=== PATIENT | male | born 1960 | race Caucasian/White ===

== ENCOUNTER 2020-09-30 07:53 | Outpatient (CLI) | payer MEDICARE, SELFPAY ==
--- NOTE | 2020-10-12 15:41 | WPDHOMESLEEP ---
Sleep Study - Home Unattended Date of Study: 09/30/20 Ordering Provider: Laura Burns MD Interpreting Physician: Lily Coley MD Home Sleep Study Type: Apnea Link Air Height: 1.78 m Weight: 79.379 kg Body Mass Index: 25.1 [place]: 17 Reason for Sleep Study Loud constant snoring, hypersomnia Sleep History Ulisses Machuca is a 60 yo man who has been able to get by his entire life on 4 hours of sleep at night. He constantly snores and it is constantly loud enough that others complain about it. He constantly awakens at night with heartburn, belching or coughing. He constantly awakens at night feeling short of breath. He occasionally has trouble sleeping if he has a cold. He constantly wakes up gasping for breath at night and has breathing problems at night observed by others. He rarely sweats excessively at night but he does frequently notice heart pounding or beating irregularly at night. He constantly falls asleep during the day, occasionally involuntarily but never while driving. He does not fall asleep during physical effort. He does not have loss of muscle tone with strong emotion. He does not have daytime difficulties due to excessive sleepiness, currently is retired / disabled. He occasionally feels paralyzed on waking or falling asleep and occasionally has vivid dreamlike scenes upon awakening or falling asleep. He constantly feels afraid to go to sleep. he occasionally has nightmares. He frequently remembers his dreams. He constantly has racing thoughts, occasionally feel sad or depressed. He constantly has anxiety. He occasionally has muscular tension, occasionally notices parts of his body jerking. He does not kick at night. He occasionally has crawling and aching feelings in his legs, occasionally has leg pain at night and occasionally has morning jaw pain. He constantly has bothered by pain during the day. He occasionally has awakened by pain at night. He constantly wakes up feeling stiff in the morning frequently with sore achy muscles infrequent with pain in the neck and spine. He has fatigue, sexual problems, memory problems, insomnia and a history of polycythemia. LAbs from [employer] on 10/09/2019 shows elevated hemoglobin and hematocrit 19.2/52.2 with rbc count elevated at 6.1. Normal bedtime is 2:00 a.m. falling asleep within minutes waking typically 3 times at night staying awake for a minute or 2. While awake he will go to the bathroom. He wakes in the morning at 6:00 a.m.. We can schedule is the same. He estimates 4 hours of sleep at night. He does take naps. Short naps are refreshing. He feels better in the morning compared other times of day Habits: previously smoked tobacco. He drinks a gal of caffeinated beverages a day. No alcohol or recreational drugs. [facility] Past Medical History Medical History (Updated 10/12/20 @ 16:14 by Lily Coley MD) COPD (chronic obstructive pulmonary disease) with chronic bronchitis Elevated PSA Fracture, clavicle Left leg paresthesias Low vitamin D level Polycythemia Polycythemia due to fall in plasma volume Surgical History Surgical History H/O thumb surgery Family History Family History Mother Cerebrovascular accident Sibling Asthma Other Diabetes mellitus Family history of arthritis Family history of malignant neoplasm Social History Social History Smoking status: Current every day smoker Second hand tobacco smoke exposure: No Alcohol intake: former Substance use type: does not use Medications Home Medications Medication Instructions Recorded Confirmed Type albuterol sulfate 90 mcg/actuation 1 puff INHALATION Q4-6H PRN gm 10/07/19 09/10/20 History aerosol inhaler roflumilast 500 mcg tablet 500 mcg PO DAILY 90 Days #90 tablet 02/03/20 09/10/20 Rx bupropion
[2020-10-12 16:14] VITALS: BMI 25.1
== END 2020-09-30 07:54 | disposition home or self-care (01) ==
LOC: ANHCSM 07:54
PROVIDERS: PCP Family Medicine; Visit Provider Internal Medicine Critical Care Medicine
DX: G47.30 Sleep apnea, unspecified (principal); G47.33 Obstructive sleep apnea (adult) (pediatric)
CPT/HCPCS: 95806

== ENCOUNTER 2020-12-01 00:18 | Outpatient (CLI) | payer MEDICARE, SELFPAY ==
[2020-12-01 17:42] LABS: SARS-CoV-2 RNA PCR Negative
== END 2020-12-01 00:19 | disposition home or self-care (01) ==
LOC: ANHCOVIDDT 00:18
PROVIDERS: PCP Family Medicine; Visit Provider Internal Medicine Critical Care Medicine
DX: R68.89 Other general symptoms and signs (principal); Z20.822 Contact with and (suspected) exposure to COVID-19
CPT/HCPCS: C9803; U0003

== ENCOUNTER 2020-12-03 09:32 | Outpatient (CLI) | payer MEDICARE, SELFPAY ==
--- NOTE | 2021-01-08 11:46 | WPDSLEEPSTUD ---
Sleep Study Date of Study: 12/03/20 Ordering Provider: Dr.Barbara Coley Interpreting Physician: Sleep Study Type: CPAP Titration Height: 1.78 m Weight: 79.379 kg Body Mass Index: 25.1 Neck Circumference: 45.72 cm [place]: 17 Reason for Sleep Study Prior home sleep study documented presence of at least moderate obstructive sleep apnea along with episodes of significant desaturation. Sleep History Loud disruptive snoring, daytime hypersomnolence. [place] score of 17 out of 24 is consistent with moderate to severe hypersomnolence. [facility] Past Medical History Medical History (Updated 10/12/20 @ 16:14 by Lily Coley MD) COPD (chronic obstructive pulmonary disease) with chronic bronchitis Elevated PSA Fracture, clavicle Left leg paresthesias Low vitamin D level Polycythemia Polycythemia due to fall in plasma volume Surgical History Surgical History H/O thumb surgery Family History Family History Mother Cerebrovascular accident Sibling Asthma Other Diabetes mellitus Family history of arthritis Family history of malignant neoplasm Social History Social History Smoking status: Current every day smoker Second hand tobacco smoke exposure: No Alcohol intake: former Substance use type: does not use Medications Home Medications Medication Instructions Recorded Confirmed Type albuterol sulfate 90 mcg/actuation 1 puff INHALATION Q4-6H PRN gm 10/07/19 09/10/20 History aerosol inhaler roflumilast 500 mcg tablet 500 mcg PO DAILY 90 Days #90 tablet 02/03/20 09/10/20 Rx bupropion HCl 150 mg tablet,12 hr 150 mg PO DAILY 30 Days #60 tablet 04/16/20 09/10/20 Rx sustained-release prednisone 5 mg tablet 5 mg PO DAILY 30 Days #30 tablet 06/04/20 09/10/20 Rx fluticasone propionate 50 2 spray NASAL DAILY PRN #47.4 ml 07/19/20 09/10/20 Rx mcg/actuation nasal spray,suspension azithromycin 250 mg tablet See Rx Instructions PO .COMPLEX #6 08/30/20 09/10/20 Rx tablet budesonide-formoterol HFA 160 2 puff INHALATION Q12H #10.2 gm 08/30/20 09/10/20 Rx mcg-4.5 mcg/actuation aerosol inhaler prednisone 5 mg tablet 15 mg PO DAILY PRN #90 tablet 09/10/20 09/10/20 Rx eszopiclone 3 mg tablet 3 mg PO ONCE #1 tablet 11/01/20 Rx cholecalciferol (vitamin D3) 1,250 1,250 mcg PO WEEKLY #10 cap 11/11/20 Rx mcg (50,000 unit) capsule ipratropium 0.5 mg-albuterol 3 mg 3 ml INHALATION QID PRN 90 Days 12/03/20 Rx (2.5 mg base)/3 mL nebulization #1080 ml soln Sleep Procedure Polysomnographic study entirely devoted to positive airway pressure titration. Patient used air fit F 30 fullface mask of medium size [employer] Sleep [employer] AASM criteria used. total recording time 375 minutes, total sleep time 327 minutes, sleep efficiency 87.1%. Sleep latency 4 minutes, REM latency 32.5 minutes. Awake after sleep onset 44 minutes, stage N1 7.6%, N2 70.9%, N3 0%, stage R 21.4%. supine sleep 94.2%, supine REM sleep 16.8%. Respiratory Analysis during CPAP titration there were 2 apneas, 1 obstructive and 1 central. Apnea index 0.4 for 30 hypopneas, hypopnea index 5.5. AHI 5.9. Supine index 6.2, nonsupine index 0. REM index 15.4, non-REM index 3.5.RERA 1.RDI-6.1. Arousals Total arousals 46, index 7.4. . spontaneous arousals 45, apnea arousal 1. Periodic Limb Movements no leg movements noted. Oximetry Data Toni oxygen saturation 89%. Lowest SaO2 73%.. SaO2<90%-229Min,SaO2<88%-37.5Min. Snoring Profile Intermittent snoring noted. Cardiac Profile normal sinus rhythm. Average heart rate 86 beats per minute. Range 48 to 121 beats per minute. EEG Profile Unremarkable EEG. Assessment and Plan Additional Plan Diagnosis-#1-GIOVANNA G47.33 CPAP titration data - patient used air fit F 30 fullfac
[2021-01-08 12:05] VITALS: BMI 25.1
== END 2020-12-03 09:33 | disposition home or self-care (01) ==
LOC: ANHCSM 09:34
PROVIDERS: PCP Family Medicine; Visit Provider Internal Medicine Critical Care Medicine
DX: G47.33 Obstructive sleep apnea (adult) (pediatric) (principal)
CPT/HCPCS: 95811

== ENCOUNTER 2021-04-01 12:22 | Outpatient (CLI) | payer MEDICARE, SELFPAY ==
[2021-04-01 13:00] VITALS: PULSE 100; O2SAT 92
[2021-04-01 13:03] VITALS: PULSE 119; O2SAT 87
[2021-04-01 13:05] VITALS: PULSE 119; O2SAT 87
[2021-04-01 13:06] VITALS: O2SAT 93
[2021-04-01 13:15] VITALS: PULSE 92; O2SAT 93
--- NOTE | 2021-04-01 15:21 | HOMEO2EVAL ---
Evaluation was performed at [facility] Home Oxygen Evaluation RC: Home Oxygen (O2) Evaluation Start: 04/01/21 15:16 Freq: Status: Active Protocol: RPE Activity Type Activity Date Activity User E-Sign Co-Sign Detail Recorded Client Recorded Date Recorded By Document 04/01/21 13:00 KRISTIN [email or web address] 04/01/21 15:21 KRISTIN Document 04/01/21 13:03 KRISTIN [id number] 04/01/21 15:21 KRISTIN Document 04/01/21 13:05 KRISTIN [email or web address] 04/01/21 15:21 KRISTIN Document 04/01/21 13:06 KRISTIN [email or web address] 04/01/21 15:21 KRISTIN Document 04/01/21 13:15 KRISTIN [id number] 04/01/21 15:21 KRISTIN 04/01/21 04/01/21 04/01/21 13:00 13:03 13:05 Home O2 Evaluation Test Phase Resting Exercise Exercise Oxygen Delivery Room Air Room Air Nasal Cannula Oxygen Flow Rate (L/min) 1 Pulse Oximetry (90-100 %) 92 87 L 87 L Pulse Rate (60-100 beats/min) 100 119 H 119 H Activity Tolerance Rating of Perceived Dyspnea (PD) Rate of Perceived Exertion (PE) Ambulation Distance (feet) Home Oxygen Evaluation Comments Treatment Charges O2 Evaluation - Outpatient 04/01/21 04/01/21 13:06 13:15 Home O2 Evaluation Test Phase Exercise Resting Oxygen Delivery Nasal Cannula Room Air Oxygen Flow Rate (L/min) 2 Pulse Oximetry (90-100 %) 93 93 Pulse Rate (60-100 beats/min) 92 Activity Tolerance Poor Rating of Perceived Dyspnea (PD) +3 Moderate Difficulty, But Can Continue Rate of Perceived Exertion (PE) 13 Somewhat Hard Ambulation Distance (feet) 100 Home Oxygen Evaluation Comments Pt requires 2 L with exertion Treatment Charges
--- NOTE | 2021-04-01 15:22 | PCRCNOTE ---
home o2 eval entered, needs for re-cert for home o2. 2 l with exertion
== END 2021-04-01 12:23 | disposition home or self-care (01) ==
PROVIDERS: PCP Family Medicine; Visit Provider Internal Medicine Critical Care Medicine
DX: R06.02 Shortness of breath (principal)
CPT/HCPCS: 94618

== ENCOUNTER 2021-07-05 12:56 | Outpatient (CLI) | payer MEDICARE, MEDICAID, SELFPAY ==
[2021-07-05 13:33] LABS: Alveolar/Arterial O2 Gradient 40.1 mmHg; Base Excess ABG 1.5 mEq/l (+/-2.0); Carboxyhemoglobin 0.7 % THb (0-2.0); Fractional Inspired Oxygen 21 %; HCO3 ABG 25.8 mEq/l (22.0-26.0); Methemoglobin ABG 0.3 %THb (0-1.5); Oxygen Content ABG 21.6 %vol (16.0-22.0); Oxygen Saturation ABG 92.4 % (95.0-100.0); Oxyhemoglobin 92.2 % THb (90.0-100.0); PCO2 ABG 39.9 mmHg (35.0-45.0); PO2 ABG 61.9 mmHg (80.0-100.0); PO2 FiO2 Ratio Arterial Blood 2.95 %; Reduced Hemoglobin 6.8 %THb (0-5.0); Total Hemoglobin 16.7 g/dL (12.0-18.0); pH ABG 7.429 (7.350-7.450)
[2021-07-05 13:34] LABS: Device ROOM AIR; Modified Allen's Test Pass; Site Drawn RIGHT RADIAL
== END 2021-07-05 12:57 | disposition home or self-care (01) ==
PROVIDERS: PCP Family Medicine; Visit Provider Nurse Practitioner Family
DX: J44.9 Chronic obstructive pulmonary disease, unspecified (principal)
CPT/HCPCS: 36600; 82375; 82805; 83050

== ENCOUNTER 2022-09-15 13:13 | Outpatient (CLI) | payer OTHER, SELFPAY ==
[2022-09-15 19:36] LABS: Cholesterol 130 mg/dL (0-200); HDL Direct 45 mg/dL; Triglycerides 123 mg/dL (<150)
[2022-09-15 19:47] LABS: LDL Cholesterol Direct 38 mg/dL
== END 2022-09-15 13:14 | disposition home or self-care (01) ==
PROVIDERS: PCP Family Medicine; Visit Provider Family Medicine
DX: Z51.81 Encounter for therapeutic drug level monitoring (principal); Z79.899 Other long term (current) drug therapy; Z12.5 Encounter for screening for malignant neoplasm of prostate
CPT/HCPCS: 36415; 80061; 84153; G0103

== ENCOUNTER 2022-11-10 08:08 | Outpatient (CLI) | payer OTHER, SELFPAY ==
--- NOTE | 2022-11-10 16:31 | WPDSIXMINUTE ---
Six Minute Walk Procedure Procedure Performed Pulmonary Stress Test (6 min walk) Six Minute Walk Six Minute Walk: This is a 6 minute walk test. The test was performed and interpreted in accordance with the 2014 ERS/ATS task force guidelines. Of note the patient is prescribed home oxygen at 2 L nasal cannula at rest and 4 L with exertion. The patient used 4 L for the current test and used a wheeled walker. The patient stopped at 2 minutes and 30 seconds due to severe shortness of breath. Findings: The patient's resting oxygen saturation on 2 L NC measured by pulse oximetry was 96% and heart rate was 62 bpm. Patient ambulated on 4 L NC for 2 minutes and 30 seconds and ambulated 305 meters and oxygen saturation remained 96 to 98%. Heart rate at the end of the study was 129 bpm. There are no prior studies for comparison.
== END 2022-11-10 08:09 | disposition home or self-care (01) ==
LOC: ANHPFT 08:08
PROVIDERS: PCP Family Medicine; Visit Provider Internal Medicine Critical Care Medicine
DX: J44.9 Chronic obstructive pulmonary disease, unspecified (principal)
CPT/HCPCS: 94618

== ENCOUNTER 2023-02-14 19:45 | Emergency (ER) | payer MEDICARE, MEDICAID, SELFPAY ==
[2023-02-14] VITALS (19 sets, daily range): BP systolic 106–129; BP diastolic 67–113; PULSE 94–116; RESP 8–24; TEMP 37.1; O2SAT 93–98
--- NOTE | ~2023-02-14 | XR_ITS ---
EXAMINATION: XR chest 2V Exam Date/Time: 02/14/2023 20:00 CDT HISTORY: chest pain, EMPHYSEMA, BRONCHITIS, COPD Comparison: 07/16/2015. RESULT: Lines, tubes, and devices: None. Lungs and pleura: Progressive emphysematous change with architectural distortion in the upper lobes. Bilateral lower lobe reticulonodular opacities. Stable left lower lobe granuloma. Cardiomediastinal silhouette: Stable. Other: No acute osseous or upper abdominal finding. IMPRESSION: Pulmonary opacities may represent bronchiolitis, as can be seen with atypical infection, asthma, aspi ration, and small airways disease. Severe emphysematous change. Reviewed, dictated and finalized at location [facility]. IMPRESSION: Pulmonary opacities may represent bronchiolitis, as can be seen with atypical i nfection, asthma, aspiration, and small airways disease. Severe emphysematous c hange.
--- NOTE | 2023-02-14 19:47 | ECG_ITS ---
Measurements Intervals [place] Rate: 110 P: 87 ID: [id number] QRS: 84 QRSD: 97 T: 75 QT: 310 QTc: 421 Interpretive Statements SINUS TACHYCARDIA BASELINE ARTIFACT- I, AVR, AVL ABNORMAL ECG NO PREVIOUS ECG AVAILABLE FOR COMPARISON Electronically Signed On 02-14-2023 21:00:06 CDT by Chad Cardoza D.O.
[2023-02-14 20:52] LABS: Basophils Absolute Auto 0.1 K/mm3 (0.0-0.1); Basophils Percent Auto 1.2 % (0.2-1.2); Eosinophils Absolute Auto 0.1 K/mm3 (0-0.3); Eosinophils Percent Auto 2.4 % (0-4.4); Hematocrit 49.5 % (42.0-52.0); Hemoglobin 16.7 g/dL (14.0-18.0); Immature Granulocyte Absolute 0.01 K/mm3 (0.00-0.031); Immature Granulocyte Percent A 0.2 % (0-0.5); Lymphocytes Absolute Auto 1.41 K/mm3 (0.9-3.2); Lymphocytes Percent Auto 23.8 % (18.3-44.2); Mean Corpuscular HGB Conc 33.7 g/dl (32-36); Mean Corpuscular Hemoglobin 29.7 pg (26-34); Mean Corpuscular Volume 87.9 fl (80-100); Mean Platelet Volume 10.6 fl (7.4-10.4); Monocytes Absolute Auto 0.6 K/mm3 (0.1-0.6); Monocytes Percent Auto 10.1 % (2.6-8.5); Neutrophils Absolute Auto 3.7 K/mm3 (1.3-6.7); Neutrophils Percent Auto 62.3 % (45.5-73.1); Platelet Count Result 235 k/mm3 (150-375); Red Blood Count 5.63 M/mm3 (4.6-6.20); Red Cell Distribution Width 13.4 % (11.5-14.5); White Blood Count 5.9 K/mm3 (4.5-10.0)
[2023-02-14 21:02] LABS: Alanine Aminotransferase 21 U/L (6-50); Albumin Level 4.3 g/dL (3.5-5.1); Alkaline Phosphatase 89 U/L (38-126); Anion Gap 9 mmol/L (8-16); Aspartate Amino Transferase 20 U/L (17-59); Bilirubin,Total 0.7 mg/dL (0.2-1.3); Blood Urea Nitrogen 18 mg/dL (9-20); Carbon Dioxide 26 mmol/L (22-30); Chloride 105 mmol/L (98-107); Estimated CRCL calculation 70 ml/min; Estimated Glomerular Filt Rate > 60; Glucose 103 mg/dL (65-110); INR 1.1; Lipase 53 U/L (23-300); Prothrombin Time 13.6 Seconds (11.1-14.7); Sodium 140 mmol/L (137-145)
[2023-02-14 21:03] LABS: Partial Thromboplastin Time 28.8 SECONDS (22.3-36.8)
[2023-02-14 21:39] LABS: Troponin I < 0.012 ng/mL (0.000-0.034)
--- NOTE | 2023-02-14 21:43 | PC.NURSE ---
Patient states he has chest pain when he takes a deep breath. Patient denies chest pain at other times. Patient wear 2-4L of O2 at home baseline. Patient is 2L at rest and 4L with exertion.
--- NOTE | 2023-02-14 22:13 | ED.CHESTPAIN ---
HPI - Chest Pain General Chief Complaint: Chest Pain Stated Complaint: chest pain x several hours Time Seen by Provider: 02/14/23 21:45 History of Present Illness HPI narrative: This is a 63-year-old male with past medical history of COPD on 2 L of O2 at home, who presents to the emergency department complaining of sharp left-sided chest pain with deep breathing. He states the pain began today while at rest. The pain is rated 5/10 and is aggravated only by deep breathing with improvement on exhalation. He denies radiation of his pain, lightheadedness, nausea or vomiting. Related Data Home Medications Medication Instructions Recorded Confirmed albuterol sulfate 90 mcg/actuation 1 puff inhalation Q4-6H PRN 10/07/19 01/04/22 aerosol inhaler (Ventolin HFA) ipratropium 0.5 mg-albuterol 3 mg 3 ml inhalation QID PRN 01/04/22 01/04/22 (2.5 mg base)/3 mL nebulization soln Allergies Allergy/AdvReac Type Severity Reaction Status Date / Time Fish Containing Products AdvReac Anaphylaxis Verified 02/14/23 20:27 shellfish derived AdvReac Anaphylaxis Verified 02/14/23 20:27 Review of Systems Review of Systems: CONSTITUTIONAL: Denies fever, chills, or sweats. CARDIOVASCULAR: Denies chest pain, palpitations, or edema. RESPIRATORY: Chronic cough productive of clear mucus without blood denies new or worsening dyspnea. GASTROINTESTINAL: Denies abdominal pain, nausea, vomiting, or diarrhea. GENITOURINARY: Denies dysuria or hematuria. SKIN: Denies rash or itching. MUSCULOSKELETAL: Denies back pain, joint pain, or myalgia. NEUROLOGIC: Denies headache, numbness, dizziness, or weakness. PSYCHIATRIC: Denies anxiety or depression. [facility] Past Medical History Medical History COPD (chronic obstructive pulmonary disease) with chronic bronchitis Elevated PSA Emphysema lung Fracture, clavicle Left leg paresthesias Low vitamin D level GIOVANNA on CPAP Polycythemia Polycythemia due to fall in plasma volume Surgical History Surgical History H/O thumb surgery Family History Family History Mother , age 77 Heart disease Cancer Cerebrovascular accident Sibling Diabetes mellitus Asthma Father Heart disease Other Family history of arthritis Family history of malignant neoplasm Social History Social History Smoking packs per day: 0.5 Smoking cigarettes per day: 10.0 Years smoked: 40 Smoking pack-years: 20.00 Smoking status: Current every day smoker Tobacco type: cigarettes Second hand tobacco smoke exposure: Yes Alcohol intake: former Substance use type: does not use Lack of Transportation: No Lack of Food: Often True Current Housing: I Have Housing Concerned About Future Housing: No Difficulty Paying Gas/Electric Bills: No Difficulty Paying for Meds: No Currently Unemployed: Decline to Answer Education: High School Diploma/GED Difficulty w/ Childcare or Family Care: No Living arrangements: with family Occupation/Education: unemployed Additional occupation/education comments: disabled Exam Narrative: GENERAL: Well-developed, well-nourished, appears uncomfortable HEAD: Normocephalic, atraumatic. EYES: PERRLA and EOMI. ENT: Nares clear, no rhinorrhea or epistaxis. Mucous membranes moist. Oropharynx without tonsillar hypertrophy exudate or other lesions. CHEST: Clear to auscultation. No respiratory distress. No wheezes rales or rhonchi. Tender to palpation over the left chest in the anterior wall and in the mid axillary line with pain similar to the patient's complaints HEART: Regular rate and rhythm. No murmur heard. Normal peripheral pulses. ABDOMEN: Soft, nontender, nondistended, normal active bowel sounds. EXTREMITIES: Normal range of motio
[2023-02-14] MEDS: ACETAMINOPHEN 500 MG TABLET 1000 MG PO (22:33)
[2023-02-14] MEDS: DOXYCYCLINE HYCLATE 100 MG TABLET PO (22:34)
[2023-02-14 23:33] LABS: Troponin I < 0.012 ng/mL (0.000-0.034)
[2023-02-15] VITALS: PULSE 102; RESP 20; O2SAT 97
[2023-02-15 00:01] VITALS: BP 117/86; PULSE 102; RESP 22; O2SAT 96
== END 2023-02-15 00:23 | disposition home or self-care (01) ==
PROVIDERS: Emergency Medicine; Emergency Provider Preventive Medicine Aerospace Medicine; PCP Family Medicine
DX: J42 Unspecified chronic bronchitis (principal); R07.89 Other chest pain
CPT/HCPCS: 36415; 71046; 80053; 83690; 84484; 85025; 85610; 85730; 93005; 99284; A9270

== ENCOUNTER 2023-03-30 13:30 | Outpatient (RCR) | payer MEDICARE, MEDICAID, SELFPAY | END 2023-03-30 23:59 | disposition home or self-care (01) | LOC: ANHCPREHAB 13:30 | PROVIDERS: PCP Family Medicine; Visit Provider Internal Medicine Critical Care Medicine | DX: J44.9 Chronic obstructive pulmonary disease, unspecified (principal) | CPT/HCPCS: 94625 ==

== ENCOUNTER 2023-05-01 13:30 | Outpatient (RCR) | payer MEDICARE, MEDICAID, SELFPAY | END 2023-05-01 15:58 | disposition home or self-care (01) | LOC: ANHCPREHAB 13:30 | PROVIDERS: PCP Family Medicine; Visit Provider Internal Medicine Critical Care Medicine | DX: J44.9 Chronic obstructive pulmonary disease, unspecified (principal) | CPT/HCPCS: 94625 ==

== ENCOUNTER 2023-05-09 16:25 | Outpatient (CLI) | payer MEDICARE, MEDICAID, SELFPAY ==
--- NOTE | 2023-05-10 10:08 | PCRCNOTE ---
Paper documentation exists on this patient due to [employer] downtime on 05/09/23 from [id number] to [id number]
--- NOTE | 2023-05-10 12:49 | WPDSIXMINUTE ---
Six Minute Walk Procedure Procedure Performed Pulmonary Stress Test (6 min walk) Six Minute Walk Six Minute Walk: This 6 minute walk test was carried out with the patient breathing supplemental oxygen at 4 liters/minute. The pre-walk baseline oxyhemoglobin saturation was 92%. The patient walked over 243 m with no stops during testing. During the walk the oxyhemoglobin saturation decreased down to 80%. Impression: Significant oxyhemoglobin desaturation on this testing.
== END 2023-05-09 16:26 | disposition home or self-care (01) ==
LOC: ANHPFT 16:26
PROVIDERS: PCP Family Medicine; Visit Provider Internal Medicine Critical Care Medicine
DX: J44.9 Chronic obstructive pulmonary disease, unspecified (principal); J96.10 Chronic respiratory failure, unspecified whether with hypoxia or hypercapnia
CPT/HCPCS: 94618

== ENCOUNTER 2024-01-10 16:24 | Outpatient (CLI) | payer MEDICARE, MEDICAID, SELFPAY ==
[2024-01-10 19:11] LABS: Hematocrit 49.4 % (42.0-52.0); Hemoglobin 15.9 g/dL (14.0-18.0); Mean Corpuscular HGB Conc 32.2 g/dl (32-36); Mean Corpuscular Hemoglobin 28.9 pg (26-34); Mean Corpuscular Volume 89.8 fl (80-100); Mean Platelet Volume 11.4 fl (7.4-10.4); Platelet Count Result 229 k/mm3 (150-375); Red Cell Distribution Width 13.3 % (11.5-14.5); White Blood Count 5.9 K/mm3 (4.5-10.0)
[2024-01-10 19:19] LABS: Alanine Aminotransferase 19 U/L (6-50); Albumin Level 3.6 g/dL (3.5-5.1); Alkaline Phosphatase 89 U/L (38-126); Anion Gap 4 mmol/L (8-16); Aspartate Amino Transferase 32 U/L (17-59); Bilirubin,Total 0.5 mg/dL (0.2-1.3); Blood Urea Nitrogen 17 mg/dL (9-20); Calcium 8.9 mg/dL (8.4-10.2); Carbon Dioxide 28 mmol/L (22-30); Chloride 107 mmol/L (98-107); Cholesterol 116 mg/dL (0-200); Estimated Glomerular Filt Rate > 60; Glucose 98 mg/dL (65-110); HDL Direct 56 mg/dL; Potassium 4.1 mmol/L (3.4-5.0); Sodium 139 mmol/L (137-145); Triglycerides 103 mg/dL (<150)
[2024-01-10 19:34] LABS: LDL Cholesterol Direct 39 mg/dL
== END 2024-01-10 16:25 | disposition home or self-care (01) ==
PROVIDERS: PCP Family Medicine; Visit Provider Nurse Practitioner Adult Health
DX: D75.1 Secondary polycythemia (principal); J44.9 Chronic obstructive pulmonary disease, unspecified; R79.89 Other specified abnormal findings of blood chemistry; G47.33 Obstructive sleep apnea (adult) (pediatric); Z99.89 Dependence on other enabling machines and devices
CPT/HCPCS: 36415; 80053; 80061; 85027

== ENCOUNTER 2024-10-07 15:08 | Outpatient (CLI) | payer MEDICARE, MEDICAID, SELFPAY ==
--- NOTE | ~2024-10-07 | CT_ITS ---
CT Scan of the Chest without Contrast: Clinical Indication: Lung cancer screening, nicotine dependence Technique: Contiguous sections were acquired throughout the chest without intravenous contrast. Dose reduction technique was used on this scan by utilizing automated exposure control and iterative recon struction technique. The dose-length product (DLP) was 122.05 mGy-cm. Findings: There is no evidence of any significant mediastinal, hilar or axillary lymphadenopathy. The mediastin al soft tissues appear normal. There is no evidence of pleural or pericardial effusion. There is severe emphysema with right upper lobe/right apical scarring. Calcified granuloma noted at t he lingula. Images through the upper abdomen reveal no abnormalities. Impression: Lung RADS 2: Benign appearance. 12 month follow-up screening CT advised. Severe emphysema. Reviewed, dictated and finalized at [facility]. E SALES LEADER Impression: Lung RADS 2: Benign appearance. 12 month follow-up screening CT advised. Severe emphysema.
== END 2024-10-07 15:09 | disposition home or self-care (01) ==
PROVIDERS: PCP Family Medicine; Visit Provider Internal Medicine Critical Care Medicine
DX: Z12.2 Encounter for screening for malignant neoplasm of respiratory organs (principal); Z87.891 Personal history of nicotine dependence
CPT/HCPCS: 71271

== ENCOUNTER 2025-01-07 14:27 | Outpatient (CLI) | payer MEDICARE, MEDICAID, SELFPAY ==
--- NOTE | ~2025-01-07 | XR_ITS ---
EXAMINATION: XR lumbar spine 2-3V DATE: 01/07/2025 12:53 INDICATION: Low back pain, unspecified. TECHNIQUE: 4 views of lumbar spine were obtained. COMPARISON: Lumbar spine radiographs 07/29/2015 FINDINGS: There is 6 degrees levocurvature of lumbar spine. Vertebral body heights are normal. There is moderately decreased disc height at L4-L5 and severely decreased disc height at L5-S1. There is mu ltilevel facet joint osteoarthritis, severe in lower lumbar spine. IMPRESSION: 1. Severe lower lumbar spondylosis. Reviewed, dictated and finalized at location A. OR CARE ASSISTANT
--- NOTE | ~2025-01-07 | XR_ITS ---
Clinical Indication: Dyspnea PA and lateral views of the chest: Comparison: 02/14/2023 Findings: Marked bullous change, especially in the right lung, is again noted. There are new air-flui d levels and at least 2 bulla, compatible with superinfection of the patella. There is right upper lo be airspace disease suspicious for associated right upper lobe pneumonia.. Cardiomediastinal silhoue tte is within normal limits. Bones and soft tissues are unremarkable. Impression: Right upper lobe pneumonia with air-fluid levels in at least 2 right lung bullae, compatible with sup erinfected bullae. Reviewed, dictated and finalized at location M. APY TECH Impression: Right upper lobe pneumonia with air-fluid levels in at least 2 right lung bulla e, compatible with superinfected bullae.
--- OUTSIDE RECORDS SUMMARY | 2025-01-07 12:29 | XMS_ITS | Clinical Summary ---
Author Organization [facility] Address [address] [place] [id number] Care Team Providers Care Casting Coordinator Name Role Phone Faisal Castaneda NP Unavailable Twin Knowles MD Primary Care Provider [phone] Allergies Active Allergy Reactions Criticality Noted Date Comments Shellfish Containing Products Shortness of breath High 11/21/2019 Medications albuterol HFA (PROVENTIL HFA,VENTOLIN HFA,PROAIR HFA) 90 mcg/actuation inhaler Inhale 2 puffs every 6 (six) hours as needed Active Breztri Aerosphere 160-9-4.8 mcg/actuation HFA aerosol inhaler 10/12/[address] (CYMBALTA) 60 mg capsule 11/04/20 21 Active fluticasone propionate (FLONASE) 50 mcg/actuation nasal spray Administer 2 sprays into affected nostril(s) daily Active Daliresp 500 mcg tablet 10/13/20 21 Active ipratropium-albut Skyla (DUO-NEB) 0.5-2.5 mg/3 mL nebulizer solutionIndicatio ns:Chronic Obstructive Pulmonary Disease with Bronchospasms Take by nebulization every 6 (six) hours Active Active Problems Problem Noted Date Diagnosed Date COPD exacerbation 08/18/2022 COPD (chronic obstructive pulmonary disease) Social History Tobacco Use Types Packs/Day Years Used Date Smoking Tobacco: Former Cigarettes Tobacco Cessation:Counseling Given: Not Answered PHQ-2 Answer Date Recorded PHQ-2 Total Score (If total score is 3 or more points, staff should administer the PHQ-9) 0 08/19/2022 Sex and Gender Information Value Date Recorded Sex Assigned at Not on file 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 Gender Identity Not on file Sexual Orientation Not on file Obstetrics History Last Filed Vital Signs Vital Sign Reading Time Taken Comments Blood Pressure 96/59 08/25/2022 7:35 AM CDT Pulse 110 08/25/2022 10:00 AM CDT Temperature 36 C (96.8 F) 08/25/2022 7:35 AM CDT Respiratory Rate 24 08/25/2022 7:35 AM CDT Oxygen Saturation 100% 08/25/2022 7:35 AM CDT Inhaled Oxygen Concentration - - Weight 97.5 kg (215 lb) 08/19/2022 8:00 PM CDT Height 177.8 cm (5' 10 ) 08/19/2022 12:00 AM CDT Body Mass Index 30.85 08/19/2022 12:00 AM CDT Plan of Treatment Health Maintenance Due Date Last Done Comments Hepatitis C Screening 1961 Prostate Cancer Screening-PSA 1961 DTaP/Tdap/Td Vaccine (1 - Tdap) 1972 Hepatitis B Screening 1979 Regular Well Visit/Exam 18-64 1979 Zoster Vaccine (1 of 2) 2011 Pneumococcal vaccine <65 (2 of 2 - PCV) 04/16/2016 04/16/2015 Depression Screening 08/18/2023 08/18/2022 Influenza Vaccine (#1) 2024 9, 09/27/2018, 10/01/2017, Additional history exists Colon Cancer Screening-Colonoscopy 02/23/20262015, 02/24/2016 Procedures Procedure Name Priority Date/Time Associated Diagnosis Comments COLONOSCOPY IMAGES 02/24/2016 from Last 3 Months or Most Recently Relevant to Health Maintenance Results * COLONOSCOPY IMAGES (02/24/2016) Anatomical Region Laterality Modality Other Narrative 02/24/2016 Ordered by an unspecified provider. us Historical Provider GI PROCEDURE ORDERABLES F inal Result from Last 3 Months or Most Recently Relevant to Health Maintenance Insurance [facility] IDNM [facility] HE[facility] IDPA [employer] [facility] [employer] Advance Directives For more information, please contact: [phone] * Full Code (Latest Code Status on File) Date Activated Date Inactivated Comments 08/19/2022 6:36 AM 08/25/2022 2:56 PM Care Teams Casting Coordinator Relationship Specialty Start Date End Date Twin Knowles MD [address] [address] PCP - General Family Practice 12/02/21 Faisal Castaneda NP [address] [facility] [address] [place] [address] Nurse Practitioner 06/28/21
--- OUTSIDE RECORDS SUMMARY | 2025-01-07 12:29 | XMS_ITS | Referral Summary ---
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 Historical Provider GI PROCEDURE ORDERABLES F inal Result from Last 3 Months or Most Recently Relevant to Health Maintenance Insurance [facility] Member Subscriber Plan / Payer (Ef fective 2021-Present) Name:Ulisses Machuca Relation to Subscriber:Self Name:Ulisses Machuca Payer ID:[id number] (NAIC) Type:MEDICARE RISK OTHER Address: [address] [facility] Member Subscriber Plan / Payer (Ef fective 2021-Present) Name:Ulisses Machuca Relation to Subscriber:Self Name:Ulisses Machuca Payer ID:[id number] (NAIC) Type:MEDICARE RISK OTHER Address: [address] [employer] Advance Directives For more information, please contact: [phone] * Full Code (Latest Code Status on File) Date Activated Date Inactivated Comments 08/19/2022 6:36 AM 08/25/2022 2:56 PM Care Teams Lang Path Therapist Relationship Specialty Start Date End Date Twin Knowles MD [address] [address] PCP - General Family Practice 12/02/21 Faisal Castaneda NP [address] [facility] [address] [place] [address] Nurse Practitioner 06/28/21
--- OUTSIDE RECORDS SUMMARY | 2025-01-07 14:33 | XMS_ITS | Clinical Summary ---
Author Organization [facility] [facility] Address [address] [place] [address] Care Team Providers Care Radon Inspector Name Role Phone CharmainedawsonLucas DO Primary Care Provider Devora vailable Allergies Active Allergy Reactions Criticality Noted Date Comments Shellfish Containing Products Shortness of Breath/Wheezing High 11/21/2019 Medications albuterol HFA 90 mcg inhaler Take 2 Puffs by inhalation every 6 hours as needed for Shortness of Breath. Active budesonide-formot toby (SYMBICORT) 160-4.5 mcg/actuation HFA Aerosol Inhaler Take 2 Puffs by inhalation 2 times daily. Active albuterol (PROVENTIL,VENTOL IN) 0.63 mg/3 mL Solution for Nebulization Take 0.63 mg by inhalation one time only. Active predniSONE (DELTASONE) 10 mg tablet Take 10 mg by mouth daily. Active ibuprofen (MOTRIN) 800 mg tablet Take 800 mg by mouth every 6 hours as needed for Pain, Mild. Active fluticasone propionate (FLONASE) 50 mcg/spray [place], Suspension nasal inhaler Administer 2 Sprays in each nostril daily. Active Cholecalciferol, Vitamin D3, 3,000 unit Tablet Take 50,000 Units by mouth. Active Active Problems Problem Noted Date Diagnosed Date Polycythemia secondary to smoking 11/21/2019 Family History Medical History Relation Name Comments Cancer Mother Heart Disease Mother Diabetes Sister 1 Relation Name Status Comments Brother Alive Father Alive Mother Sister 1 Alive Sister 2 Alive Social History Tobacco Use Types Packs/Day Years Used Date Smoking Tobacco: Some Days Cigarettes 0.3 25 Smokeless Tobacco: Never Alcohol Use Standard Drinks/Week Comments Never 0 (1 standard drink = 0.6 oz pur e alcohol) Sex and Gender Information Value Date Recorded Sex Assigned at Not on file Legal Sex Male 1:34 PM COMMUNITY SERVICES MANAGER Gender Identity Not on file Sexual Orientation Not on file Last Filed Vital Signs Vital Sign Reading Time Taken Comments Blood Pressure 105/74 11/21/2019 8:34 AM COMMUNITY SERVICES MANAGER Pulse 94 11/21/2019 8:34 AM COMMUNITY SERVICES MANAGER Temperature 36.6 C (97.9 F) 11/21/2019 8:34 AM COMMUNITY SERVICES MANAGER Respiratory Rate - - Oxygen Saturation 95% 11/21/2019 8:34 AM COMMUNITY SERVICES MANAGER Inhaled Oxygen Concentration - - Weight 77.5 kg (170 lb 14.4 oz) 11/21/2019 8:34 AM COMMUNITY SERVICES MANAGER Height 180.3 cm (5' 11 ) 11/21/2019 8:34 AM COMMUNITY SERVICES MANAGER Body Mass Index 23.84 11/21/2019 8:34 AM COMMUNITY SERVICES MANAGER Plan of Treatment Health Maintenance Due Date Last Done Comments DTAP/TDAP/TD VACCINES (1 - Tdap) 1980 COLORECTAL SCREENING 2006 Colorectal Cancer Screening 2006 FIT-DNA Q 3 years 2006 FIT/FOBT Q 1 year 2006 Flex Sig/CT Colonography Q 5 years 2006 ZOSTER VACCINE (1 of 2) 2011 INFLUENZA VACCINE (#1) 2024 RSV VACCINE (60+ or ) (1 - 1-dose 75+ series) 2036 PNEUMOCOCCAL VACCINE 0-64 YEARS Aged Out No longer eligible based on patient's age to complete this topic Care Teams Radon Inspector Relationship Specialty Start Date End Date Lucas Daniel DO NO ADDRESS ON FILE PCP - General Family Practice 11/05/19
--- OUTSIDE RECORDS SUMMARY | 2025-01-07 14:33 | XMS_ITS | Clinical Summary ---
Author Organization [facility] Address [address] [place] [id number] Care Team Providers Care Sack Lifter Name Role Phone Faisal Castaneda NP Unavailable Twin Knowles MD Primary Care Provider [phone] Allergies Active Allergy Reactions Criticality Noted Date [...] on file Legal Sex Male 9:21 PM CUPOLA MAN Gender Identity Not on file Sexual Orientation [...] Most Recently Relevant to Health Maintenance Insurance [facility] IDFL [facility] IDPA AETNA [facility] ADVANTRA Advance Directives For more information, please contact: [phone] * Full Code (Latest Code Status on File) Date Activated Date Inactivated Comments 08/19/2022 6:36 AM 08/25/2022 2:56 PM Care Teams Sack Lifter Relationship Specialty Start Date End Date Twin Knowles MD [address] [address] PCP - General Family Practice 12/02/21 Faisal Castaneda NP [address] [facility] [address] [place] [address] Nurse Practitioner 06/28/21
--- OUTSIDE RECORDS SUMMARY | 2025-01-07 14:33 | XMS_ITS | Referral Summary ---
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 Gender Identity Not on file Sexual Orientation [...] Most Recently Relevant to Health Maintenance Insurance [employer] [facility] Member Subscriber Plan / Payer (Ef fective 2021-Present) Name:Ulisses Machuca Relation to Subscriber:Self Name:Ulisses Macuhca Payer ID:[id number] (NAIC) Type:MEDICARE RISK OTHER Address: [address] [employer] [employer] Member Subscriber Plan / Payer (Ef fective 2021-Present) Name:Ulisses Machuca Relation to Subscriber:Self Name:Ulisses Machuca Payer ID:[id number] (NAIC) Type:MEDICARE RISK OTHER Address: [address] [employer] Advance Directives For more information, please contact: [phone] * Full Code (Latest Code Status on File) Date Activated Date Inactivated Comments 08/19/2022 6:36 AM 08/25/2022 2:56 PM Care Teams Firestop/Containment Worker Relationship Specialty Start Date End Date Twin Knowles MD [address] [address] PCP - General Family Practice 12/02/21 Faisal Castaneda NP [address] [facility] [address] [place] [address] Nurse Practitioner 06/28/21
[2025-01-07 14:54] LABS: Hematocrit 35.2 % (42.0-52.0); Mean Corpuscular HGB Conc 31.3 g/dl (32-36); Mean Corpuscular Hemoglobin 25.9 pg (26-34); Mean Corpuscular Volume 82.8 fl (80-100); Mean Platelet Volume 10.2 fl (7.4-10.4); Platelet Count Result 318 k/mm3 (150-375); Red Blood Count 4.25 M/mm3 (4.6-6.20); Red Cell Distribution Width 14.4 % (11.5-14.5); White Blood Count 7.5 K/mm3 (4.5-10.0)
[2025-01-07 15:48] LABS: Alanine Aminotransferase 19 U/L (6-50); Albumin Level 3.3 g/dL (3.5-5.1); Alkaline Phosphatase 177 U/L (38-126); Anion Gap 9 mmol/L (4-12); Aspartate Amino Transferase 24 U/L (17-59); Bilirubin,Total 0.9 mg/dL (0.2-1.3); Blood Urea Nitrogen 11 mg/dL (9-20); Calcium 8.7 mg/dL (8.4-10.2); Carbon Dioxide 28 mmol/L (22-30); Chloride 97 mmol/L (98-107); Cholesterol 77 mg/dL (0-200); Estimated Glomerular Filt Rate > 60; Glucose 104 mg/dL (65-110); HDL Direct 23 mg/dL; Potassium 3.9 mmol/L (3.4-5.0); Sodium 134 mmol/L (137-145); Triglycerides 68 mg/dL (<150)
[2025-01-07 15:59] LABS: LDL Cholesterol Direct 35 mg/dL; Troponin I < 0.012 ng/mL (0.000-0.034)
[2025-01-07 16:08] LABS: Vitamin D 25 Hydroxy < 12.8 ng/mL
== END 2025-01-07 14:28 | disposition home or self-care (01) ==
PROVIDERS: PCP Family Medicine; Referring Provider Internal Medicine Critical Care Medicine; Visit Provider Family Medicine
DX: M47.896 Other spondylosis, lumbar region (principal); J18.9 Pneumonia, unspecified organism; R06.09 Other forms of dyspnea; Z79.899 Other long term (current) drug therapy; R79.89 Other specified abnormal findings of blood chemistry; D75.1 Secondary polycythemia; J44.9 Chronic obstructive pulmonary disease, unspecified; G47.33 Obstructive sleep apnea (adult) (pediatric); Z99.89 Dependence on other enabling machines and devices; Z00.00 Encounter for general adult medical examination without abnormal findings; J85.2 Abscess of lung without pneumonia
CPT/HCPCS: 36415; 71046; 72100; 80053; 80061; 82306; 82607; 83605; 84484; 85027

== ENCOUNTER 2025-01-13 21:04 | Inpatient (IN) | payer MEDICARE, MEDICAID, SELFPAY ==
--- NOTE | ~2025-01-13 | CT_ITS ---
EXAMINATION: CT diagnostic chest wo con DATE: 01/13/2025 22:05 INDICATION: Lung abscess TECHNIQUE: Computed tomography (CT) of the chest was performed with 100 mL Omnipaque-350 intravenous contrast. Automated exposure control and iterative reconstruction technique were employed. The dose-l ength product was 221.51 mGy-cm. COMPARISON: CT chest 10/07/2024 and 11/05/2019; x-ray chest 01/07/2025. FINDINGS: CHEST: Thoracic aorta: No significant dilation or calcification. Lung parenchyma and airways: Severe emphysematous change with multiple pulmonary bullae. Volume loss in the right hemithorax. Multiple air-fluid levels within multiple bullae in the right lung. Right up per lobe and peribronchovascular consolidation in the right lung. Thoracic inlet, axillae and chest wall: No thyroid or soft tissue mass. No axillary lymphadenopathy. Mediastinum: Dilated central pulmonary arteries as can be seen with pulmonary arterial hypertension. Likely left hilar lymphadenopathy. Heart and pericardium: Normal heart size. No pericardial effusion. Coronary artery calcifications: Mild. Pleura: No effusion or mass. Upper abdomen: No significant finding. Thoracic bones: No acute osseous finding in the chest. IMPRESSION: Right upper lobe consolidation and multiple air-fluid levels within multiple right pulmonary bullae s uggesting pneumonia with superinfected bullae. Reviewed, dictated and finalized at location K. TRIMMER IMPRESSION: Right upper lobe consolidation and multiple air-fluid levels within multiple ri ght pulmonary bullae suggesting pneumonia with superinfected bullae.
--- NOTE | ~2025-01-13 | XR_ITS ---
EXAMINATION: XR chest 1V portable Exam Date/Time: 01/13/2025 21:30 SAFE DEPOSIT BOX RENTAL CLERK HISTORY: SOB Comparison: 01/07/2025; CT chest 01/13/2025. RESULT: Lines, tubes, and devices: None. Lungs and pleura: Severe emphysematous change. Large right upper lung bullae, several of which conta in fluid, grossly stable given interval differences in positioning and technique. Segmental right upp er lobe airspace disease. Cardiomediastinal silhouette: Stable. Other: No acute osseous or upper abdominal finding. IMPRESSION: Radiographic and concurrent CT findings consistent with right upper lobe pneumonia and superinfected bullae. Reviewed, dictated and finalized at location K. DEPOSIT BOX RENTAL CLERK IMPRESSION: Radiographic and concurrent CT findings consistent with right upper lobe pneumo niharika and superinfected bullae.
[2025-01-13 21:10] VITALS: BP 102/61; PULSE 100; RESP 33; TEMP 36.8; O2SAT 99
--- NOTE | 2025-01-13 21:10 | ECG_ITS ---
Test Date: 2025-01-13 21:12:52 Measurements Intervals [place] Rate: 95 P: 59 RI: 143 QRS: 71 QRSD: 88 T: 61 QT: 318 QTc: 400 Interpretive Statements SINUS RHYTHM BASELINE ARTIFACT- I, II, AVR, AVL, AVF, V1-V6 NORMAL ECG No previous ECG available for comparison Electronically Signed On 01-14-2025 07:04:45 [facility] by Chad Cardoza D.O.
[2025-01-13 21:15] VITALS: PULSE 96
[2025-01-13 21:16] VITALS: O2SAT 100
[2025-01-13 21:17] VITALS: BP 102/61; PULSE 97; RESP 15; TEMP 36.8; O2SAT 100
[2025-01-13 21:26] LABS: Basophils Absolute Auto 0.1 K/mm3 (0.0-0.1); Eosinophils Absolute Auto 0.1 K/mm3 (0-0.3); Eosinophils Percent Auto 0.6 % (0-4.4); Hematocrit 37.2 % (42.0-52.0); Hemoglobin 11.4 g/dL (14.0-18.0); Immature Granulocyte Absolute 0.03 K/mm3 (0.00-0.031); Immature Granulocyte Percent A 0.4 % (0-0.5); Lymphocytes Percent Auto 13.3 % (18.3-44.2); Mean Corpuscular HGB Conc 30.6 g/dl (32-36); Mean Corpuscular Volume 84.7 fl (80-100); Mean Platelet Volume 9.9 fl (7.4-10.4); Monocytes Absolute Auto 0.8 K/mm3 (0.1-0.6); Monocytes Percent Auto 9.4 % (2.6-8.5); Neutrophils Absolute Auto 6.2 K/mm3 (1.3-6.7); Neutrophils Percent Auto 75.3 % (45.5-73.1); Platelet Count Result 382 k/mm3 (150-375); Red Blood Count 4.39 M/mm3 (4.6-6.20); Red Cell Distribution Width 14.7 % (11.5-14.5); White Blood Count 8.3 K/mm3 (4.5-10.0)
--- OUTSIDE RECORDS SUMMARY | 2025-01-13 21:26 | XMS_ITS | Clinical Summary ---
Author Organization [facility] [facility] Address [address] [place] [address] Care Team Providers Care Assembler Camper Name Role Phone CharmainedawsonLucas DO Primary Care [...] Mild. Active fluticasone propionate (FLONASE) 50 mcg/spray [place], Suspension nasal inhaler Administer 2 Sprays in [...] on file Legal Sex Male 1:34 PM PRODUCT ENGINEER Gender Identity Not on file Sexual Orientation Not on file Last Filed Vital Signs Vital Sign Reading Time Taken Comments Blood Pressure 105/74 11/21/2019 8:34 AM PRODUCT ENGINEER Pulse 94 11/21/2019 8:34 AM PRODUCT ENGINEER Temperature 36.6 C (97.9 F) 11/21/2019 8:34 AM PRODUCT ENGINEER Respiratory Rate - - Oxygen Saturation 95% 11/21/2019 8:34 AM PRODUCT ENGINEER Inhaled Oxygen Concentration - - Weight 77.5 kg (170 lb 14.4 oz) 11/21/2019 8:34 AM PRODUCT ENGINEER Height 180.3 cm (5' 11 ) 11/21/2019 8:34 AM PRODUCT ENGINEER Body Mass Index 23.84 11/21/2019 8:34 AM PRODUCT ENGINEER Plan of Treatment Health Maintenance Due Date [...] age to complete this topic Care Teams Assembler Camper Relationship Specialty Start Date End Date Lucas Daniel DO NO ADDRESS ON FILE PCP - General Family Practice 11/05/19
[2025-01-13 21:36] LABS: Lactic Acid Reflex 1.6 mmol/L (0.7-2.0)
[2025-01-13 21:40] LABS: Alanine Aminotransferase 14 U/L (6-50); Albumin Level 3.5 g/dL (3.5-5.1); Alkaline Phosphatase 114 U/L (38-126); Anion Gap 7 mmol/L (4-12); Aspartate Amino Transferase 19 U/L (17-59); Bilirubin,Total 0.6 mg/dL (0.2-1.3); Blood Urea Nitrogen 10 mg/dL (9-20); Calcium 8.9 mg/dL (8.4-10.2); Carbon Dioxide 30 mmol/L (22-30); Chloride 98 mmol/L (98-107); Estimated CRCL calculation 101 ml/min; Estimated Glomerular Filt Rate > 60; Glucose 114 mg/dL (65-110); Lipase 19 U/L (23-300); Magnesium 2.1 mg/dL (1.6-2.3); Phosphorus 3.3 mg/dL (2.5-4.5); Potassium 3.8 mmol/L (3.4-5.0); Sodium 135 mmol/L (137-145)
[2025-01-13 21:52] LABS: Alveolar/Arterial O2 Gradient 53.4 mmHg; Base Excess ABG -1.2 mEq/l (+/-2.0); Fractional Inspired Oxygen 28 %; HCO3 ABG 22.7 mEq/l (22.0-26.0); Oxygen Content ABG 15.5 %vol (16.0-22.0); Oxygen Saturation ABG 97.9 % (95.0-100.0); Oxyhemoglobin 97.3 % THb (90.0-100.0); PCO2 ABG 35.3 mmHg (35.0-45.0); PO2 ABG 104.6 mmHg (80.0-100.0); PO2 FiO2 Ratio Arterial Blood 3.74 %; Total Hemoglobin 11.2 g/dL (12.0-18.0); pH ABG 7.427 (7.350-7.450)
[2025-01-13 21:55] LABS: Device NASAL CANNULA; Modified Allen's Test Pass; Site Drawn LEFT RADIAL
[2025-01-13 22:51] LABS: INR 1.2; Prothrombin Time 15.5 Seconds (11.1-14.7)
[2025-01-13 22:52] LABS: Partial Thromboplastin Time 38.3 Seconds (22.3-36.8)
--- NOTE | 2025-01-13 23:08 | PC.NURSE ---
blood cultures and urine sample obtained prior to abx being started.
[2025-01-13] MEDS: AMPICILLIN SULB 3 GM/NS 100 ML 3 GM/100 ML VIAL IVPB (23:10)
[2025-01-13 23:11] LABS: Add Urine Microscopic? YES; Appearance Urine Clear (Clear); Bacteria Urine None Seen /hpf; Bilirubin Urine 1+ (Negative); Blood Urine Negative (Negative); Color Urine Dark Yellow (Yellow); Glucose Urine UA Negative (Negative); Ketones Urine Trace mg/dL (Negative); Leukocyte Esterase Ur Negative LEU/UL (Negative); Nitrate Urine Negative (Negative); Non Pathogenic Casts 0-2; Protein Urine Trace mg/dL (Negative); RBC Urine 0-2 /hpf (0-2); Specific Grav Ur 1.026 (1.001-1.035); Squamous Epithelial Cell Urine None Seen /hpf (Few); WBC Urine 0-5 /hpf (0-3)
[2025-01-13 23:11] LABS: Influenza A QL RT-PCR Negative (Negative); Influenza B QL RT-PCR Negative (Negative); RSV RNA, RT-PCR Negative (Negative); SARS-CoV-2 RNA PCR Negative (Negative)
--- NOTE | 2025-01-13 23:12 | ED.GENADULT ---
HPI - General Adult General Chief complaint: Shortness of Breath/Dyspnea Stated complaint: SOB, pain in lungs Time Seen by Provider: 01/13/25 21:17 History of Present Illness HPI narrative: This is a 64-year-old male with poor baseline respiratory status presenting with pulmonary abscess. He was seen by his furnace operator several days ago when he was 1st diagnosed in his room recommended that he come to the hospital for admission. At that time he declined. He was placed on oral antibiotics, however eventually changes mind and came in. Patient states he has been feeling weak and is having intermittent chest pains. He is denying fevers chills nausea vomiting diarrhea. Please see pulmonary office visit note from January 07, 2025 by Lily Coely for a complete picture of the patients detailed description of the patients current condition. Patient is supposed to have a meeting with hospice next 2 days. Related Data Allergies Allergy/AdvReac Type Severity Reaction Status Date / Time Fish Containing Products AdvReac Anaphylaxis Verified 01/13/25 21:05 shellfish derived AdvReac Anaphylaxis Verified 01/13/25 21:05 PMFSH Past Medical History Medical History GIOVANNA on CPAP Polycythemia Low vitamin D level Elevated PSA Polycythemia due to fall in plasma volume Left leg paresthesias COPD (chronic obstructive pulmonary disease) with chronic bronchitis Emphysema lung Fracture, clavicle Surgical History Surgical History H/O thumb surgery Family History Family History Mother , age 77 Heart disease Cancer Cerebrovascular accident Sibling Diabetes mellitus Asthma Father Heart disease Other Family history of arthritis Family history of malignant neoplasm Social History Social History Smoking packs per day: 1 Smoking cigarettes per day: 20.0 Years smoked: 40 Smoking pack-years: 40.00 Smoking status: Current every day smoker Tobacco type: cigarettes Second hand tobacco smoke exposure: Yes Smoking end date: 12/18/22 Alcohol intake: former Substance use: never Substance use type: does not use Lack of Transportation: No Lack of Food: Sometimes True Current Housing: I Have Housing Concerned About Future Housing: No Difficulty Paying Gas/Electric Bills: YES Difficulty Paying for Meds: No Currently Unemployed: No Education: High School Diploma/GED Difficulty w/ Childcare or Family Care: No Living arrangements: with family Occupation/Education: unemployed Additional occupation/education comments: disabled Gender identity (if verbalized by the patient): Male Course Vital Signs Vital signs: Vital Signs Temperature 98.2 F 01/13/25 21:10 Pulse Rate 100 01/13/25 21:10 Respiratory Rate 33 H 01/13/25 21:10 Blood Pressure 102/61 01/13/25 21:10 Pulse Oximetry 99 01/13/25 21:10 Oxygen Delivery Nasal Cannula 01/13/25 21:10 Oxygen Flow Rate 2 01/13/25 21:10 Temperature 98.2 F 01/13/25 21:17 Pulse Rate 97 01/13/25 21:17 Respiratory Rate 15 01/13/25 21:17 Blood Pressure 102/61 01/13/25 21:17 Pulse Oximetry 100 01/13/25 21:17 Oxygen Delivery Nasal Cannula 01/13/25 21:16 Oxygen Flow Rate 2 01/13/25 21:16 Medical Decision Making MDM Narrative Medical decision making narrative: -Course: 64-year-old male pulmonary abscess. CT showed bullae with superinfection. Started on ampicillin/sulbactam and doxycycline. Given fluid resuscitation. Vital signs stable. Goals of care were discussed with this time and he is DNR/DNI medications ok. Patient discussed with Dr. Watkins. The patient be admitted hospital for further management. -DDX includes but is not limited to: Pneumonia, pulmonary abscess, COPD Vital Signs Vital Signs: Vital Signs Temperature 98.2 F 01/13/25 21:10 Pulse Rate 100 01/13/25 21:10 Respiratory Rate 33 H 01/13/25 21:10 Blood Pressure 102/61 01/13/25 21:10 Pulse Oximetry 99 01/13/25 21:10 Oxygen Delivery Nasal Cannula 01/13/25 21:10 Oxygen Flow Rate 2 01/13/25 21:10 Temperature 98.2 F 01/13/25 21:17 Pulse Rate 97 01/13/25 21:17 Respiratory Rate 15 01/13/25 21:17 Blood Pressure 102/61 01/13/25 21:17 Pulse Oximetry 100 01/13/25 21:17 Oxygen Delivery Nasal Cannula 01/13/25 21:16 Oxygen Flow Rate 2 01/13/25 21:16 Lab Data 01/13/25 21:20 01/13/25 21:20 Labs: Lab Results 01/13/25 01/13/25 01/13/25 Range/Units 21:19 21:20 21:22 WBC 8.3 (4.5-10.0) K/mm3 RBC 4.39 L (4.6-6.20) M/mm3 Hgb 11.4 L (14.0-18.0) g/dL Hct 37.2 L (42.0-52.0) % MCV 84.7 (80-100) fl MCH 26.0 (26-34) pg MCHC 30.6 L (32-36) g/dl RDW 14.7 H (11.5-14.5) % Plt Count 382 H (150-375) k/mm3 MPV 9.9 (7.4-10.4) fl Immature Gran % (Auto) 0.4 (0-0.5) % Neut % (Auto) 75.3 H (45.5-73.1) % Lymph % (Auto) 13.3 L (18.3-44.2) % [place] % (Auto) 9.4 H (2.6-8.5) % Eos % (Auto) 0.6 (0-4.4) % Baso % (Auto) 1.0 (0.2-1.2) % Lymph # (Auto) 1.10 (0.9-3.2) K/mm3 [place] # (Auto) 0.8 H (0.1-0.6) K/mm3 Eos # (Auto) 0.1 (0-0.3) K/mm3 Baso # (Auto) 0.1 (0.0-0.1) K/mm3 Abs Immat Gran (auto) 0.03 (0.00-0.031) K/mm3 Absolute Neuts (auto) 6.2 (1.3-6.7) K/mm3 Absolute Nucleated RBC 0.000 (0.0-0.012) K/mm3 Nucleated RBC % 0.0 (0.0-0.2) % PT 15.5 H (11.1-14.7) Seconds INR 1.2 APTT 38.3 H (22.3-36.8) Seconds Sodium 135 L (137-145) mmol/L Potassium 3.8 (3.4-5.0) mmol/L Chloride 98 (98-107) mmol/L Carbon Dioxide 30 (22-30) mmol/L Anion Gap 7 (4-12) mmol/L BUN 10 (9-20) mg/dL Creatinine 0.63 L (0.7-1.3) mg/dL Estim Creat Clear Calc 101 ml/min Estimated GFR > 60 (59 - ) Glucose 114 H (65-110) mg/dL Lactic Acid 1.6 (0.7-2.0) mmol/L Calcium 8.9 (8.4-10.2) mg/dL Phosphorus 3.3 Cancelled (2.5-4.5) mg/dL Magnesium 2.1 Cancelled (1.6-2.3) mg/dL Total Bilirubin 0.6 (0.2-1.3) mg/dL AST 19 (17-59) U/L ALT 14 (6-50) U/L Alkaline Phosphatase 114 (38-126) U/L Total Protein 8.0 (6.3-8.2) g/dL Albumin 3.5 (3.5-5.1) g/dL Lipase 19 L Cancelled (23-300) U/L Urine Color (Yellow) Urine Appearance (Clear) Urine pH (5.0-9.0) Ur Specific [place] (1.001-1.035) Urine Protein (Negative) mg/dL Urine Glucose (UA) (Negative) mg/dL Urine Ketones (Negative) mg/dL Ur Blood (Man) (Negative) Urine Nitrate (Negative) Urine Bilirubin (Negative) Urine Urobilinogen (<2.0) mg/dL Leukocyte Esterase Rfl (Negative) SHIVA/UL Urine RBC (0-2) /hpf Urine WBC (0-3) /hpf Ur Squamous Epith Cells (Few) /hpf Urine Bacteria /hpf Urine Casts Influenza A (RT-PCR) (Negative) Influenza B (RT-PCR) (Negative) RSV (RT-PCR) (Negative) SARS-CoV-2 RNA (RT-PCR) (Negative) 01/13/25 01/13/25 Range/Units 22:27 23:00 WBC (4.5-10.0) K/mm3 RBC (4.6-6.20) M/mm3 Hgb (14.0-18.0) g/dL Hct (42.0-52.0) % MCV (80-100) fl MCH (26-34) pg MCHC (32-36) g/dl RDW (11.5-14.5) % Plt Count (150-375) k/mm3 MPV (7.4-10.4) fl Immature Gran % (Auto) (0-0.5) % Neut % (Auto) (45.5-73.1) % Lymph % (Auto) (18.3-44.2) % [place] % (Auto) (2.6-8.5) % Eos % (Auto) (0-4.4) % Baso % (Auto) (0.2-1.2) % Lymph # (Auto) (0.9-3.2) K/mm3 [place] # (Auto) (0.1-0.6) K/mm3 Eos # (Auto) (0-0.3) K/mm3 Baso # (Auto) (0.0-0.1) K/mm3 Abs Immat Gran (auto) (0.00-0.031) K/mm3 Absolute Neuts (auto) (1.3-6.7) K/mm3 Absolute Nucleated RBC (0.0-0.012) K/mm3 Nucleated RBC % (0.0-0.2) % PT (11.1-14.7) Seconds INR APTT (22.3-36.8) Seconds Sodium (137-145) mmol/L Potassium (3.4-5.0) mmol/L Chloride (98-107) mmol/L Carbon Dioxide (22-30) mmol/L Anion Gap (4-12) mmol/L BUN (9-20) mg/dL Creatinine (0.7-1.3) mg/dL Estim Creat Clear Calc ml/min Estimated GFR (59 - ) Glucose (65-110) mg/dL Lactic Acid (0.7-2.0) mmol/L Calcium (8.4-10.2) mg/dL Phosphorus (2.5-4.5) mg/dL Magnesium (1.6-2.3) mg/dL Total Bilirubin (0.2-1.3) mg/dL AST (17-59) U/L ALT (6-50) U/L Alkaline Phosphatase (38-126) U/L Total Protein (6.3-8.2) g/dL Albumin (3.5-5.1) g/dL Lipase (23-300) U/L Urine Color Dark yellow (Yellow) Urine Appearance Clear (Clear) Urine pH 6.0 (5.0-9.0) Ur Specific [place] 1.026 (1.001-1.035) Urine Protein Trace (Negative) mg/dL Urine Glucose (UA) Negative (Negative) mg/dL Urine Ketones Trace H (Negative) mg/dL Ur Blood (Man) Negative (Negative) Urine Nitrate Negative (Negative) Urine Bilirubin 1+ H (Negative) Urine Urobilinogen 4.0 H (<2.0) mg/dL Leukocyte Esterase Rfl Negative (Negative) SHIVA/UL Urine RBC 0-2 (0-2) /hpf Urine WBC 0-5 (0-3) /hpf Ur Squamous Epith Cells None seen (Few) /hpf Urine Bacteria None seen /hpf Urine Casts 0-2 Influenza A (RT-PCR) Negative (Negative) Influenza B (RT-PCR) Negative (Negative) RSV (RT-PCR) Negative (Negative) SARS-CoV-2 RNA (RT-PCR) Negative (Negative) ABG Data ABG results: 01/13/25 21:38 Puncture Site Left radial ABG pH 7.427 ABG pCO2 35.3 ABG pO2 104.6 H ABG PO2/FiO2 Ratio 3.74 ABG HCO3 22.7 ABG O2 Saturation 97.9 ABG O2 Content 15.5 L ABG Base Excess -1.2 A-a Gradient 53.4 Oxyhemoglobin 97.3 Total Hemoglobin 11.2 L O2 Delivery Device Nasal cannula O2 Liters/Min 2.0 FiO2 28 Critical Care Time Critical Care Time Critical Care Time: Yes Total Critical Care Time: 35 Discharge Plan Discharge Clinical Impression: Abscess of lung Patient Disposition: Still a Patient Condition: Stable Patient Language: Comoran Prescriptions: No Action rizatriptan [Maxalt] 10 mg tablet See Rx Instructions PO .COMPLEX Qty: 30 0RF Rx Instructions: take 1 tab at onset of headache; if no relief may repeat 1 tab after at least 2 hrs; max = 3 tabs/24 hr PO azithromycin 250 mg tablet See Rx Instructions PO .COMPLEX 30 Days Qty: 14 5RF Rx Instructions: take 250 mg Mon, Sun and Fridays for COPD management roflumilast [Daliresp] 500 mcg tablet 500 mcg PO DAILY 90 Days Qty: 90 3RF azithromycin 250 mg tablet 250 mg PO 3XW 90 Days Qty: 39 3RF Rx Instructions: Take on Mon, Sun, and Fridays for COPD. Breztri Aerosphere 160-9-4.8 mcg/actuation HFA aerosol inhaler 2 inh inhalation BID 90 Days Qty: 10.7 2RF Rx Instructions: Rinse and spit after use. amoxicillin-pot clavulanate [Augmentin XR] 1,000-62.5 mg tablet extended release 12 hr 1 tablet PO Q12H 30 Days Qty: 60 0RF tizanidine 2 mg capsule 2 mg PO TID PRN (Reason: muscle spasticity) Qty: 60 0RF albuterol sulfate 2.5 mg /3 mL (0.083 %) solution for nebulization 2.5 mg inhalation Q6H 30 Days Qty: 360 5RF albuterol sulfate [Ventolin HFA] 90 mcg/actuation HFA aerosol inhaler 1 puff INHALATION Q4-6H PRN (Reason: bronchospasm) Qty: 8.5 1RF fluticasone propionate 50 mcg/actuation spray,suspension See Rx Instructions .ROUTE .COMPLEX Qty: 48 3RF Dose Instruction: USE 1 SPRAY IN EACH NOSTRIL TWICE DAILY Rx Instructions: USE 1 SPRAY IN EACH NOSTRIL TWICE DAILY bupropion HCl (smoking deter) 150 mg tablet extended release 12 hr See Rx Instructions .ROUTE .COMPLEX Qty: 180 1RF Dose Instruction: 150 MG ORALLY TWICE A DAY Rx Instructions: 150 MG ORALLY TWICE A DAY roflumilast 500 mcg tablet See Rx Instructions .ROUTE .COMPLEX Qty: 90 1RF Dose Instruction: TAKE 1 TABLET BY MOUTH EVERY DAY Rx Instructions: TAKE 1 TABLET BY MOUTH EVERY DAY Breztri Aerosphere 160-9-4.8 mcg/actuation HFA aerosol inhaler 2 inh inhalation Q12H 30 Days Qty: 10.7 11RF Rx Instructions: Rinse and spit after using. duloxetine 60 mg capsule,delayed release(DR/EC) See Rx Instructions .ROUTE .COMPLEX Qty: 90 1RF Dose Instruction: TAKE 1 CAPSULE BY MOUTH EVERY DAY Rx Instructions: TAKE 1 CAPSULE BY MOUTH EVERY DAY Follow-up/Referrals: Twin Knowles MD [Primary Care Provider] -
[2025-01-13 23:50] VITALS: BP 124/74; PULSE 70; RESP 19; O2SAT 100
[2025-01-14] VITALS (21 sets, daily range): BP systolic 94–114; BP diastolic 51–67; PULSE 91–106; RESP 15–26; TEMP 35.6–37.3; O2SAT 95–100; BMI 21.9
[2025-01-14] MEDS: DOXYCYCLINE 100 MG/NS 100 ML 100 MG/100 ML BAG IVPB ×3 (01:13→23:00)
[2025-01-14] MEDS: LACTATED RINGERS 1,000 ML 999 ML IV CONT (01:28)
[2025-01-14] MEDS: LACTATED RINGERS 1,000 ML 125 ML IV CONT ×2 (02:41→19:27)
--- NOTE | 2025-01-14 03:27 | ADMGEN ---
This patient, Ulisses Machuca, was admitted to 3 [facility] Surg Room 317-01. Patient/family oriented to hospital policies and general routines including ID bracelet, bed and alarms, visiting hours, pain management, procedures, bathroom and other care routines, personal items, smoking policy, room service/diet, and visiting hours. Information on how to activate the Rapid Response Team has been discussed. Patient/Family are encouraged to report perceived risks to care and to ask questions if they do not understand what they are told or what they should do.
[2025-01-14] MEDS: AMPICILLIN SULB 3 GM/NS 100 ML 3 GM/100 ML VIAL IVPB ×4 (04:48→22:05)
--- NOTE | 2025-01-14 05:22 | PCRCNOTE ---
Window of time for administration has passed. See next scheduled administration.
[2025-01-14] MEDS: IPRATROPIUM 0.5 MG/ALBUTEROL SULFATE 2.5 MG AMPUL.NEB 3 ML INHALATION ×3 (08:50→19:22)
[2025-01-14] MEDS: HYDROcodone/acetaminophen (*CRX) 5-325 MG TABLET 1 TAB PO (10:39)
--- NOTE | 2025-01-14 14:08 | PM.IMHP ---
H&P: HPI History of Present Illness Date/Time: 01/14/25 14:08 Chief Complaint: Pleuritic chest pain Narrative: 64 year old male recently found to have a lung abscess diagnosed by pulmology md adviced to come in for admission during office visit , pt declined at that time. pt has been feeling more sob and having pleuritic chest pain. pt has oxygen at home 2 liter at rest 4 liter on ambulation. pt has history of end stage copd states he quit smoking in 2022. pt awaiting to speak to hospice. ct shows - Right upper lobe consolidation and multiple air-fluid levels within multiple right pulmonary bullae suggesting pneumonia with superinfected bullae. will start iv abx abd consult pulmonology Review of Systems Review of Systems: Pt positive for weight loss sob, chest pleuritic pain all other 12 systems are negative apart from those in hpi PMFSH Past Medical History Medical History GIOVANNA on CPAP Polycythemia Low vitamin D level Elevated PSA Polycythemia due to fall in plasma volume Left leg paresthesias COPD (chronic obstructive pulmonary disease) with chronic bronchitis Emphysema lung Fracture, clavicle Surgical History Surgical History H/O thumb surgery Family History Family History Mother , age 77 Heart disease Cancer Cerebrovascular accident Sibling Diabetes mellitus Asthma Father Heart disease Other Family history of arthritis Family history of malignant neoplasm Social History Social History Smoking packs per day: 1 Smoking cigarettes per day: 20.0 Years smoked: 40 Smoking pack-years: 40.00 Smoking status: Former smoker Tobacco type: cigarettes Second hand tobacco smoke exposure: Yes Smoking end date: 12/18/22 Alcohol intake: never Substance use: never Substance use type: does not use Do You Feel Safe in your Home?: Yes Lack of Transportation: No Lack of Food: Never True Current Housing: I Have Housing Concerned About Future Housing: No Difficulty Paying Gas/Electric Bills: No Difficulty Paying for Meds: No Currently Unemployed: No Education: Decline to Answer Difficulty w/ Childcare or Family Care: No Living arrangements: with family Occupation/Education: unemployed Additional occupation/education comments: disabled Gender identity (if verbalized by the patient): Male Spiritual care concerns: No Meds Home Medications and Allergies Home Medications ?Medication ?Instructions ?Recorded ?Confirmed ?Type albuterol sulfate 2.5 mg/3 mL 2.5 mg (3 mL) inhalation Q6H 1 11/13/23 01/14/25 Rx (0.083 %) solution for nebulization month #360 mL albuterol sulfate 90 mcg/actuation 1 puff inhalation Q4-6H PRN 11/13/23 01/14/25 Rx aerosol inhaler (Ventolin HFA) bronchospasm #8.5 grams fluticasone propionate 50 See Rx Instructions .Route 03/12/24 01/14/25 Rx mcg/actuation nasal .COMPLEX #48 mL spray,suspension azithromycin 250 mg tablet See Rx Instructions PO .COMPLEX 09/30/24 01/14/25 Rx COPD management 1 month #14 tabs Breztri Aerosphere 160 2 inh inhalation Q12H COPD 1 month 10/29/24 01/14/25 Rx mcg-9mcg-4.8mcg/actuation HFA #10.7 grams aerosol inhaler (xedwyrlvpt-[id number]) duloxetine 60 mg capsule,delayed See Rx Instructions .Route 11/17/24 01/14/25 Rx release .COMPLEX #90 caps amoxicillin-potassium clavulanate 1 tablet PO Q12H lung abscess 1 01/07/25 01/14/25 Rx 1,000 mg-62.5 mg tablet,ext.rel month #60 tabs 12hr (Augmentin XR) azithromycin 250 mg tablet 250 mg PO 3XW COPD 3 months #39 01/07/25 01/14/25 Rx tabs budesonide 160 mcg-glycopyr 9 2 inh inhalation BID COPD 3 months 01/07/25 01/14/25 Rx mcg-formot 4.8 mcg/actuation HFA #10.7 grams inhaler (Breztri Aerosphere) roflumilast 500 mcg tablet 500 mcg PO DAILY COPD 3 months #90 01/07/25 01/14/25 Rx (Daliresp) tabs tizanidine 2 mg capsule 2 mg PO TID PRN muscle spasticity 02/12/25 02/19/25 Rx #60 caps Allergies Allergy/AdvReac Type Severity Reaction Status Date / Time Fish Containing Products AdvReac Anaphylaxis Verified 01/13/25 21:05 shellfish derived AdvReac Anaphylaxis Verified 01/13/25 21:05 Vital Signs Vital Signs - 24 hr 01/13/25 21:10 01/13/25 21:15 01/13/25 21:16 Temperature 36.8 C Pulse Rate 100 96 Respiratory Rate 33 H Blood Pressure 102/61 Pulse Oximetry 99 100 Oxygen Delivery Nasal Cannula Nasal Cannula Oxygen Flow Rate 2 2 01/13/25 21:17 01/13/25 23:50 01/14/25 01:18 Temperature 36.8 C Pulse Rate 97 70 96 Respiratory Rate 15 19 24 H Blood Pressure 102/61 124/74 104/62 Pulse Oximetry 100 100 100 Oxygen Delivery Oxygen Flow Rate 01/14/25 01:33 01/14/25 01:55 01/14/25 02:25 Temperature Pulse Rate 94 92 91 Respiratory Rate 26 H 15 15 Blood Pressure 100/63 Pulse Oximetry 100 Oxygen Delivery Oxygen Flow Rate 01/14/25 02:56 01/14/25 03:00 01/14/25 03:44 Temperature 37.2 C Pulse Rate 97 98 94 Respiratory Rate 18 17 16 Blood Pressure 100/67 114/61 Pulse Oximetry 100 99 100 Oxygen Delivery Oxygen Flow Rate 01/14/25 04:00 01/14/25 08:45 01/14/25 08:51 Temperature Pulse Rate 102 H Respiratory Rate 16 Blood Pressure Pulse Oximetry 95 97 Oxygen Delivery Nasal Cannula Nasal Cannula Oxygen Flow Rate 2 2 01/14/25 08:53 01/14/25 09:01 01/14/25 13:05 Temperature Pulse Rate 100 97 Respiratory Rate 20 20 Blood Pressure Pulse Oximetry 97 Oxygen Delivery Room Air Oxygen Flow Rate 01/14/25 13:14 Temperature Pulse Rate 97 Respiratory Rate 20 Blood Pressure Pulse Oximetry Oxygen Delivery Oxygen Flow Rate Exam Narrative: GENERAL:chronically ill cachexic on oxygen HEAD: Normocephalic, atraumatic. EYES: PERRLA and EOMI. ENT: Nares clear, no rhinorrhea or epistaxis. Mucous membranes moist. CHEST: Clear to auscultation. No respiratory distress. No wheezes rales or rhonchi. HEART: Regular rate and rhythm. No murmur heard. Normal peripheral pulses. ABDOMEN: Soft, nontender, nondistended, normal active bowel sounds. EXTREMITIES: Normal range of motion. No edema. SKIN: Warm, dry, no rash. NEURO: No focal deficits. Alert and oriented x3. PSYCH: Normal mood and affect. H&P: Results Labs Labs: Short CBC 01/13/25 Range/Units 21:20 WBC 8.3 (4.5-10.0) K/mm3 Hgb 11.4 L (14.0-18.0) g/dL Hct 37.2 L (42.0-52.0) % Plt Count 382 H (150-375) k/mm3 BMP 01/13/25 21:20 Sodium 135 L Potassium 3.8 Chloride 98 Carbon Dioxide 30 BUN 10 Creatinine 0.63 L Glucose 114 H Calcium 8.9 Liver Function 01/13/25 Range/Units 21:20 Total Bilirubin 0.6 (0.2-1.3) mg/dL AST 19 (17-59) U/L ALT 14 (6-50) U/L Alkaline Phosphatase 114 (38-126) U/L Albumin 3.5 (3.5-5.1) g/dL Urine 01/13/25 Range/Units 23:00 Urine Color Dark yellow (Yellow) Urine Appearance Clear (Clear) Urine pH 6.0 (5.0-9.0) Ur Specific [place] 1.026 (1.001-1.035) Urine Protein Trace (Negative) mg/dL Urine Glucose (UA) Negative (Negative) mg/dL Assessment and Plan Assessment and plan (1) Chest pain: Code(s): R07.9 - Chest pain, unspecified Status: Acute Assessment and Plan: secondary to lung abscess pain control iv abx started follow bc (2) PSVT (paroxysmal supraventricular tachycardia): Code(s): I47.1 - Supraventricular tachycardia Status: Acute Assessment and Plan: pt is on tele (3) End stage COPD: Code(s): J44.9 - Chronic obstructive pulmonary disease, unspecified Status: Acute Assessment and Plan: pt is on oxygen 2 liters at rest 4 liters with activity which is his baseline , roflumilast, inhalers and breathing treatments (4) Abscess of lung: Code(s): J85.2 - Abscess of lung without pneumonia Status: Acute Assessment and Plan: pt is on iv ampicillin, iv doxyxcycline iv fluids consult pulmonology wcc is nl Quality VTE Prophylaxis VTE prophylaxis: pharmacologic ordered Hospitalist MIPS Advance Care Plan I have confirmed that the patient's Advanced Care Plan is present, code status is documented, or surrogate decision maker is listed in patient medical record.: Yes Medication Reconciliation I have utilized all available resources to obtain, update and review the patients current medications (includes all prescriptions, OTC, herbals, cannabis, and nutritional supplements).: Yes
[2025-01-14] MEDS: DULoxetine HCL 60 MG CAPSULE.DR BY MOUTH (15:18)
[2025-01-14 18:33] LABS: MRSA (PCR) NOT DETECTED (NOT DETECTE)
[2025-01-14] MEDS: ALBUTEROL SULFATE NEB 2.5 MG/3 ML INH INHALATION (19:22)
[2025-01-14] MEDS: FLUTICASONE PROPIONATE 0.05% NA SPR 16 GM BTL (*BKC) 1 SPRAY NASAL (22:05)
[2025-01-14] MEDS: METOPROLOL TARTRATE 12.5 MG TABLET PO (23:44)
[2025-01-15] VITALS (17 sets, daily range): BP systolic 95–111; BP diastolic 54–64; PULSE 85–104; RESP 16–18; TEMP 35.7–36.6; O2SAT 95–100
[2025-01-15] MEDS: HYDROcodone/acetaminophen (*CRX) 5-325 MG TABLET 1 TAB PO ×2 (02:14→22:30)
[2025-01-15] MEDS: IPRATROPIUM 0.5 MG/ALBUTEROL SULFATE 2.5 MG AMPUL.NEB 3 ML INHALATION ×3 (02:48→20:45)
[2025-01-15] MEDS: ALBUTEROL SULFATE NEB 2.5 MG/3 ML INH INHALATION ×3 (02:52→20:45)
[2025-01-15] MEDS: AMPICILLIN SULB 3 GM/NS 100 ML 3 GM/100 ML VIAL IVPB ×4 (03:26→22:31)
[2025-01-15] MEDS: LACTATED RINGERS 1,000 ML 125 ML IV CONT ×2 (03:26→11:21)
--- NOTE | 2025-01-15 07:06 | P.CDI_ITS ---
CDI Query Clarification Request BMIm: 22.0 Nutritional Diagnostic Statement: Please refer to the comprehensive nutrition assessment for further information. If you agree with diagnosis of Moderate protein calorie malnutrition related to inadequate energy intake as evidenced by a -10% wt loss x 3 months, reported decreased intake for greater than 1 month, and NFPE findings for moderate subcutaneous fat loss (cheeks) and moderate muscle wasting (church, clavicle). Please specify severity if known: * Mild * Moderate * Severe * Other/Unknown
[2025-01-15] MEDS: ENOXAPARIN 40 MG/0.4 ML SYRINGE SUB-Q (08:30)
[2025-01-15] MEDS: FLUTICASONE PROPIONATE 0.05% NA SPR 16 GM BTL (*BKC) 1 SPRAY NASAL ×2 (08:30→22:33)
[2025-01-15] MEDS: DULoxetine HCL 60 MG CAPSULE.DR BY MOUTH (08:30)
[2025-01-15] MEDS: ROFLUMILAST 500 MCG TABLET PO (08:30)
[2025-01-15] MEDS: METOPROLOL TARTRATE 12.5 MG TABLET PO ×2 (08:30→22:33)
--- NOTE | 2025-01-15 09:20 | P.CONPL_ITS ---
Assessment and Plan Assessment and plan (1) Emphysema lung: Qualifiers: Emphysema type: unspecified Qualified Code(s): J43.9 - Emphysema, unspecified Code(s): J43.9 - Emphysema, unspecified Status: Acute (2) COPD (chronic obstructive pulmonary disease) with chronic bronchitis: Code(s): J44.9 - Chronic obstructive pulmonary disease, unspecified Status: Acute (3) Obstructive sleep apnea: Code(s): G47.33 - Obstructive sleep apnea (adult) (pediatric) Status: Acute (4) Former smoker: Code(s): Z87.891 - Personal history of nicotine dependence Status: Acute (5) Multiple lung abscesses: Code(s): J85.2 - Abscess of lung without pneumonia Status: Acute Assessment and Plan: This 64-year-old man, with advanced bullous emphysema and chronic hypoxemic hypercapnic respiratory failure, is on home ventilatory support and supplemental oxygen. He presented with generalized weakness and weight loss. A chest CT revealed right upper lobe consolidation and multiple air-fluid levels within several right lung bullae, suggesting pneumonia with superinfected bullae. The radiographic findings, as indicated by the radiology report, are more consistent with superinfected bullae rather than lung abscesses. The patient does not exhibit signs of an active lung infection, such as cough with sputum, fever, chills, or leukocytosis. Considering his history of choking on food approximately two months ago, this condition could be related to possible smoldering aspiration pneumonia due to anaerobic bacteria or possibly a non- tuberculous mycobacterial infection in the setting of advanced bullous emphysema. Viral PCR testing negative, MRSA PCR also negative. Plan: I concur with the current regimen of Unasyn and doxycycline, which provides coverage for both anaerobic and atypical microorganisms. We will collect sputum for acid-fast bacilli (AFB) testing to rule out atypical mycobacterial infection and also conduct a QuantiFERON test for tuberculosis, although this is highly unlikely. I will continue to follow up with the patient along with you. History of Present Illness History of Present Illness Consult date: 01/15/25 Chief complaint: pna w/ lung abscess Narrative: This 64-year-old man, with a history of severe emphysema, was admitted to the hospital due to ongoing shortness of breath, weakness, and weight loss. He has a history of chronic hypoxemic hypercapnic respiratory failure and obstructive sleep apnea, for which he uses noninvasive ventilatory support at home. He is also on maintenance triple inhalers for advanced COPD. Over the past two months, the patient has experienced weight loss, accompanied by a poor appetite, but he reports no fever, chills, hemoptysis, night sweats, or lower extremity edema. He has chronic back pain and has been noncompliant with his home ventilatory support. A recent chest X-ray revealed severe bullous emphysema with enlarged air sacs and new infiltrates with air-fluid levels within the old bullae. Following evaluation by his packaging materials inspector in an outpatient setting, he was started on Augmentin for a possible lung abscess. Although initially reluctant to stay in the hospital, he decided to return to the emergency room for admission a few days later. Upon reviewing his recent history, the patient mentioned that approximately two months ago, he choked on a sandwich, which led to intense coughing. He has experienced poor appetite and weight loss over the last two months, losing approximately 20 lbs. He denies any night sweats, hemoptysis, chest pain, fever, chills, or changes in his cough, sputum production, or exertional dyspnea. He is a former smoker, having quit several years ago. His past medical history includes alcohol abuse many years ago. He previously worked in a steel mill and has not received vaccinations recently. He reports no other exposures at home and has no history of tuberculosis exposure. His last pulmonary function test, conducted five years ago, indicated very severe emphysema with an FEV1 of approximately 0.8 L. He uses oxygen at 2 liters per minute at rest and at night, and 4 liters per minute during activities. Review of Systems 2 Review of Systems: All systems reviewed & are unremarkable except as noted in HPI and below (HPI and below) [facility] Past Medical History Medical History GIOVANNA on CPAP Polycythemia Low vitamin D level Elevated PSA Polycythemia due to fall in plasma volume Left leg paresthesias COPD (chronic obstructive pulmonary disease) with chronic bronchitis Emphysema lung Fracture, clavicle Surgical History Surgical History H/O thumb surgery Family History Family History Mother , age 77 Heart disease Cancer Cerebrovascular accident Sibling Diabetes mellitus Asthma Father Heart disease Other Family history of arthritis Family history of malignant neoplasm Social History Social History Smoking packs per day: 1 Smoking cigarettes per day: 20.0 Years smoked: 40 Smoking pack-years: 40.00 Smoking status: Former smoker Tobacco type: cigarettes Second hand tobacco smoke exposure: Yes Smoking end date: 12/18/22 Alcohol intake: never Substance use: never Substance use type: does not use Do You Feel Safe in your Home?: Yes Lack of Transportation: No Lack of Food: Never True Current Housing: I Have Housing Concerned About Future Housing: No Difficulty Paying Gas/Electric Bills: No Difficulty Paying for Meds: No Currently Unemployed: No Education: Decline to Answer Difficulty w/ Childcare or Family Care: No Living arrangements: with family Occupation/Education: unemployed Additional occupation/education comments: disabled Gender identity (if verbalized by the patient): Male Spiritual care concerns: No Meds Home Medications and Allergies Home Medications ?Medication ?Instructions ?Recorded ?Confirmed ?Type albuterol sulfate 2.5 mg/3 mL 2.5 mg (3 mL) inhalation Q6H 1 11/13/23 01/14/25 Rx (0.083 %) solution for nebulization month #360 mL albuterol sulfate 90 mcg/actuation 1 puff inhalation Q4-6H PRN 11/13/23 01/14/25 Rx aerosol inhaler (Ventolin HFA) bronchospasm #8.5 grams fluticasone propionate 50 See Rx Instructions .Route 03/12/24 01/14/25 Rx mcg/actuation nasal .COMPLEX #48 mL spray,suspension azithromycin 250 mg tablet See Rx Instructions PO .COMPLEX 09/30/24 01/14/25 Rx COPD management 1 month #14 tabs Breztri Aerosphere 160 2 inh inhalation Q12H COPD 1 month 10/29/24 01/14/25 Rx mcg-9mcg-4.8mcg/actuation HFA #10.7 grams aerosol inhaler (fhjelvsqnp-hhqxsqsp-nxykgwcswm) duloxetine 60 mg capsule,delayed See Rx Instructions .Route 11/17/24 01/14/25 Rx release .COMPLEX #90 caps amoxicillin-potassium clavulanate 1 tablet PO Q12H lung abscess 1 01/07/25 01/14/25 Rx 1,000 mg-62.5 mg tablet,ext.rel month #60 tabs 12hr (Augmentin XR) azithromycin 250 mg tablet 250 mg PO 3XW COPD 3 months #39 01/07/25 01/14/25 Rx tabs budesonide 160 mcg-glycopyr 9 2 inh inhalation BID COPD 3 months 01/07/25 01/14/25 Rx mcg-formot 4.8 mcg/actuation HFA #10.7 grams inhaler (Breztri Aerosphere) roflumilast 500 mcg tablet 500 mcg PO DAILY COPD 3 months #90 01/07/25 01/14/25 Rx (Daliresp) tabs tizanidine 2 mg capsule 2 mg PO TID PRN muscle spasticity 01/07/25 01/14/25 Rx #60 caps Allergies Allergy/AdvReac Type Severity Reaction Status Date / Time Fish Containing Products AdvReac Anaphylaxis Verified 01/13/25 21:05 shellfish derived AdvReac Anaphylaxis Verified 01/13/25 21:05 Vital Signs Vital Signs - 24 hr 01/14/25 13:05 01/14/25 13:14 01/14/25 14:00 Temperature 35.6 C L Pulse Rate 97 97 93 Respiratory Rate 20 20 16 Blood Pressure 94/51 L Pulse Oximetry 98 Oxygen Delivery Oxygen Flow Rate 01/14/25 19:22 01/14/25 19:22 01/14/25 19:39 Temperature Pulse Rate 98 96 Respiratory Rate 18 18 Blood Pressure Pulse Oximetry 98 Oxygen Delivery Nasal Cannula Oxygen Flow Rate 2 01/14/25 20:23 01/14/25 21:00 01/14/25 23:07 Temperature 37.3 C Pulse Rate 106 H 106 H 99 Respiratory Rate 22 H 22 H Blood Pressure 105/53 L Pulse Oximetry 96 96 Oxygen Delivery Nasal Cannula Oxygen Flow Rate 2 01/14/25 23:44 01/15/25 00:02 01/15/25 02:53 Temperature Pulse Rate 95 97 92 Respiratory Rate 18 Blood Pressure Pulse Oximetry Oxygen Delivery Oxygen Flow Rate 01/15/25 03:08 01/15/25 04:03 01/15/25 04:27 Temperature 36.6 C Pulse Rate 95 97 85 Respiratory Rate 18 16 Blood Pressure 101/54 L Pulse Oximetry 100 Oxygen Delivery Oxygen Flow Rate 01/15/25 07:20 01/15/25 07:20 Temperature Pulse Rate 87 Respiratory Rate 16 Blood Pressure Pulse Oximetry 95 Oxygen Delivery Nasal Cannula Oxygen Flow Rate 2 Exam 2 Narrative: GENERAL APPEARANCE: Well developed, well nourished, alert and cooperative, and appears to be in no acute distress while in bed on supplemental oxygen SKIN: Inspection of the skin reveals no rashes, ulcerations or petechiae. HEENT: Sclerae anicteric and conjunctivae pink and moist. Extraocular movements were intact and pupils were equal, round, and reactive to light. The oral mucosa, hard and soft palate, tongue and posterior pharynx were normal. NECK: Supple. There was no thyroid enlargement, and no tenderness, or masses were felt. LUNGS: Hyperinflated lungs, distant breath sounds bilaterally no wheezing CARDIAC: There was a regular rate and rhythm without any murmurs, gallops, rubs. ABDOMEN: Soft and nontender with normal bowel sounds. There was no organomegaly. LYMPH NODES: No lymphadenopathy was appreciated in the neck. EXTREMITIES: Clubbing in upper extremities, no edema NEUROLOGIC: Alert and oriented x 3. Normal affect. Results Laboratory Findings 01/13/25 21:20 01/13/25 21:20 ABG, PT/INR, D-dimer: ABG ABG pH 7.427 (7.350-7.450) 01/13/25 21:38 ABG pCO2 35.3 mmHg (35.0-45.0) 01/13/25 21:38 ABG pO2 104.6 mmHg (80.0-100.0) H 01/13/25 21:38 ABG O2 Saturation 97.9 % (95.0-100.0) 01/13/25 21:38 PT/INR, D-dimer PT 15.5 Seconds (11.1-14.7) H 01/13/25 21:19 INR 1.2 01/13/25 21:19 Abnormal lab findings: Abnormal Labs 01/13/25 01/13/25 01/13/25 21:19 21:20 21:38 RBC 4.39 L Hgb 11.4 L Hct 37.2 L MCHC 30.6 L RDW 14.7 H Plt Count 382 H Neut % (Auto) 75.3 H Lymph % (Auto) 13.3 L [place] % (Auto) 9.4 H [place] # (Auto) 0.8 H PT 15.5 H APTT 38.3 H ABG pO2 104.6 H ABG O2 Content 15.5 L Total Hemoglobin 11.2 L Sodium 135 L Creatinine 0.63 L Glucose 114 H Lipase 19 L Urine Ketones Urine Bilirubin Urine Urobilinogen 01/13/25 23:00 RBC Hgb Hct MCHC RDW Plt Count Neut % (Auto) Lymph % (Auto) [place] % (Auto) [place] # (Auto) PT APTT ABG pO2 ABG O2 Content Total Hemoglobin Sodium Creatinine Glucose Lipase Urine Ketones Trace H Urine Bilirubin 1+ H Urine Urobilinogen 4.0 H
[2025-01-15] MEDS: DOXYCYCLINE 100 MG/NS 100 ML 100 MG/100 ML BAG IVPB ×2 (11:21→23:19)
--- NOTE | 2025-01-15 16:29 | P.PNIM_ITS ---
Progress Note: A&P Assessment and Plan (1) Chest pain: Code(s): R07.9 - Chest pain, unspecified Status: Acute Assessment and Plan: #secondary to lung abscess #pain control --> troponin negative, EKG notes no changes -->iv abx started --> follow bc --trend labs (2) PSVT (paroxysmal supraventricular tachycardia): Code(s): I47.1 - Supraventricular tachycardia Status: Acute Assessment and Plan: ## currently stable -continue on tele (3) End stage COPD: Code(s): J44.9 - Chronic obstructive pulmonary disease, unspecified Status: Acute Assessment and Plan: ##Chronic - outpatient Pulmonolgy did refer to hospice services due to end stage - pt is on oxygen 2 liters at rest 4 liters with activity which is his baseline , --> roflumilast, inhalers and breathing treatments (4) Abscess of lung: Code(s): J85.2 - Abscess of lung without pneumonia Status: Acute Assessment and Plan: ## iv ampicillin, iv doxyxcycline --iv fluids consult -pulmonology did see today, --> hospice to evaluate today Time Spent With Patient Time with patient: Greater than 35 minutes (50 minutes) Subjective Date/time seen: 01/15/25 08:29 Interval history: Patient reports today that he is feeling somewhat improved however he still complains of shortness of breath, cough, and fatigue. He states he feels as if he is coughing somewhat better. Denies any current chest pain, nausea, vomiting or diarrhea. Denies any fever chills. He is awaiting a hospice consultation, Pulmonary did come and visit the patient, he states that he has very little options left. He denies any distress otherwise. Review of Systems Review of Systems: Pt positive for weight loss sob, chest pleuritic pain all other 12 systems are negative apart from those in hpi Exam Narrative: GENERAL:chronically ill cachexic on oxygen HEAD: Normocephalic, atraumatic. EYES: PERRLA and EOMI. ENT: Nares clear, no rhinorrhea or epistaxis. Mucous membranes moist. CHEST: Diminished lung sounds in all michele, No respiratory distress. No wheezes rales or rhonchi. HEART: Regular rate and rhythm. No murmur heard. Normal peripheral pulses. ABDOMEN: Soft, nontender, nondistended, normal active bowel sounds. EXTREMITIES: Normal range of motion. No edema. SKIN: Warm, dry, no rash. NEURO: No focal deficits. Alert and oriented x3. PSYCH: Normal mood and affect. Objective Data Vital Signs Vital Signs: Vital Signs - 24 hr 01/14/25 19:22 01/14/25 19:22 01/14/25 19:39 Temperature Pulse Rate 98 96 Respiratory Rate 18 18 Blood Pressure Pulse Oximetry 98 Oxygen Delivery Nasal Cannula Oxygen Flow Rate 2 01/14/25 20:23 01/14/25 21:00 01/14/25 23:07 Temperature 99.2 F Pulse Rate 106 H 106 H 99 Respiratory Rate 22 H 22 H Blood Pressure 105/53 L Pulse Oximetry 96 96 Oxygen Delivery Nasal Cannula Oxygen Flow Rate 2 01/14/25 23:44 01/15/25 00:02 01/15/25 02:53 Temperature Pulse Rate 95 97 92 Respiratory Rate 18 Blood Pressure Pulse Oximetry Oxygen Delivery Oxygen Flow Rate 01/15/25 03:08 01/15/25 04:03 01/15/25 04:27 Temperature 97.9 F Pulse Rate 95 97 85 Respiratory Rate 18 16 Blood Pressure 101/54 L Pulse Oximetry 100 Oxygen Delivery Oxygen Flow Rate 01/15/25 07:20 01/15/25 07:20 01/15/25 07:30 Temperature Pulse Rate 87 94 Respiratory Rate 16 16 Blood Pressure Pulse Oximetry 95 Oxygen Delivery Nasal Cannula Oxygen Flow Rate 2 01/15/25 08:00 01/15/25 13:51 Temperature 96.3 F L Pulse Rate 101 H 104 H Respiratory Rate 18 Blood Pressure 95/62 L Pulse Oximetry 96 Oxygen Delivery Oxygen Flow Rate Intake/Output Intake/Output: Intake & Output 01/12/25 01/13/25 01/14/25 01/15/25 23:59 23:59 23:59 23:59 Intake Total 100 3520 3219.6 Output Total 300 1400 Balance 100 3220 1819.6 Meds/Results Medications: Active Medications Generic Name Dose Route Start Last Admin Trade Name Freq PRN Reason Stop Dose Admin Hydrocodone Bitart/Acetaminophen 1 tab 01/14/25 10:01 01/15/25 02:14 Hydrocodone/Acetaminophen (*Crx) 5-325 Mg Tablet PO 1 tab Q6H PRN Administration Pain Rated 4-6 Albuterol 2.5 mg 02/19/25 14:00 01/15/25 16:27 Albuterol Sulfate Neb 2.5 Mg/3 Ml Inh INHALATION 2.5 mg Q6HRT DAMIEN Administration Albuterol/Ipratropium 3 ml 01/14/25 02:00 01/15/25 07:19 Ipratropium 0.5 Mg/Albuterol Sulfate 2.5 Mg Ampul.Neb 3 Ml INHALATION 3 ml Q6HRT DAMIEN Administration Duloxetine HCl 60 mg 01/14/25 15:00 01/15/25 08:30 Duloxetine Hcl 60 Mg Capsule.Dr BY MOUTH 60 mg QAM DAMIEN Administration Enoxaparin Sodium 40 mg 01/15/25 09:00 01/15/25 08:30 Enoxaparin 40 Mg/0.4 Ml Syringe SUB-Q 40 mg DAILY DAMIEN Administration Fluticasone Propionate 1 spray 01/14/25 21:00 01/15/25 08:30 Fluticasone Propionate 0.05% Na Spr 16 Gm Btl (*Bkc) NASAL 1 spray Q12HR DAMIEN Administration Fluticasone/Umeclidinium/Vilanterol 1 puff 01/15/25 09:00 Fluticasone/Umeclidin/Vilanter 100-62.5-25 Mcg Ellipta INHALATION DAILY DAMIEN Ampicillin Sodium/Sulbactam Sodium 3 gm in 100 mls @ 200 mls/hr 01/13/25 22:00 01/15/25 09:58 Unasyn 3 Gm/Ns 100 Ml IVPB 200 mls/hr Q6H DAMIEN Administration Doxycycline Hyclate 100 mg in 100 mls @ 100 mls/hr 01/14/25 11:00 01/15/25 11:21 Vibramycin 100 Mg/Ns 100 Ml IVPB 100 mls/hr Q12H DAMIEN Administration Lactated Ringer's 1,000 mls @ 125 mls/hr 01/14/25 01:25 01/15/25 11:21 Lr - Lactated Ringers Iv IV CONT 125 mls/hr .Q8H DAMIEN Administration Metoprolol Tartrate 12.5 mg 01/14/25 23:00 01/15/25 08:30 Metoprolol Tartrate 12.5 Mg Tablet PO 12.5 mg Q12HR ADMIEN Administration Roflumilast 500 mcg 01/15/25 09:00 01/15/25 08:30 Roflumilast 500 Mcg Tablet PO 500 mcg DAILY DAMIEN Administration Sodium Chloride 6 ml 01/16/25 05:00 Sodium Chlor 3% 15 Ml Neb (Respiratory Therapy) INHALATION 01/18/25 05:01 DAILY@0500 DAMIEN Tizanidine HCl 2 mg 01/14/25 14:18 Tizanidine Hcl 2 Mg Tablet PO TID PRN muscle spasticity Radiology Results: ITS Impressions Chest X-Ray 01/13/25 22:04 IMPRESSION: Radiographic and concurrent CT findings consistent with right upper lobe pneumonia and superinfected bullae. Chest CT 01/13/25 22:18 IMPRESSION: Right upper lobe consolidation and multiple air-fluid levels within multiple right pulmonary bullae suggesting pneumonia with superinfected bullae. Labs Labs: Laboratory Results - last 24 hr 01/14/25 17:04 Nasal MRSA (PCR) Not detected Quality VTE Prophylaxis VTE prophylaxis: pharmacologic ordered Hospitalist [facility] Advance Care Plan I have confirmed that the patient's Advanced Care Plan is present, code status is documented, or surrogate decision maker is listed in patient medical record.: Yes Medication Reconciliation I have utilized all available resources to obtain, update and review the patients current medications (includes all prescriptions, OTC, herbals, cannabis, and nutritional supplements).: Yes
[2025-01-16] VITALS (8 sets, daily range): BP systolic 94–102; BP diastolic 55–61; PULSE 83–99; RESP 18–24; TEMP 36.1–36.5; O2SAT 95–100
[2025-01-16] MEDS: ALBUTEROL SULFATE NEB 2.5 MG/3 ML INH INHALATION ×3 (02:00→15:17)
[2025-01-16] MEDS: IPRATROPIUM 0.5 MG/ALBUTEROL SULFATE 2.5 MG AMPUL.NEB 3 ML INHALATION ×3 (02:01→15:17)
[2025-01-16] MEDS: AMPICILLIN SULB 3 GM/NS 100 ML 3 GM/100 ML VIAL IVPB (03:00)
[2025-01-16] MEDS: LACTATED RINGERS 1,000 ML 125 ML IV CONT (06:07)
--- NOTE | 2025-01-16 06:11 | PCRCNOTE ---
Sputum induction complete, no sputum obtained, specimen cup left at bedside.
[2025-01-16 07:22] LABS: Basophils Percent Auto 0.7 % (0.2-1.2); Eosinophils Absolute Auto 0.3 K/mm3 (0-0.3); Eosinophils Percent Auto 5.1 % (0-4.4); Hematocrit 32.6 % (42.0-52.0); Hemoglobin 10.3 g/dL (14.0-18.0); Immature Granulocyte Absolute 0.03 K/mm3 (0.00-0.031); Immature Granulocyte Percent A 0.5 % (0-0.5); Lymphocytes Absolute Auto 1.44 K/mm3 (0.9-3.2); Lymphocytes Percent Auto 24.3 % (18.3-44.2); Mean Corpuscular HGB Conc 31.6 g/dl (32-36); Mean Corpuscular Volume 85.6 fl (80-100); Mean Platelet Volume 10.2 fl (7.4-10.4); Monocytes Absolute Auto 0.6 K/mm3 (0.1-0.6); Monocytes Percent Auto 10.6 % (2.6-8.5); Neutrophils Absolute Auto 3.5 K/mm3 (1.3-6.7); Neutrophils Percent Auto 58.8 % (45.5-73.1); Platelet Count Result 325 k/mm3 (150-375); Red Blood Count 3.81 M/mm3 (4.6-6.20); Red Cell Distribution Width 14.7 % (11.5-14.5); White Blood Count 5.9 K/mm3 (4.5-10.0)
--- NOTE | 2025-01-16 07:36 | PM.DS ---
DS: Admitting Diagnosis Discharge Date 01/15/2025 Admitting Diagnosis Abscess along without pneumonia, end-stage COPD, tachycardia DS: Discharge Diagnosis Discharge Diagnosis (1) Chest pain: Code(s): R07.9 - Chest pain, unspecified Status: Acute Assessment and Plan: #secondary to lung abscess #pain control --> troponin negative, EKG notes no changes -->iv abx started --> follow bc --trend labs (2) PSVT (paroxysmal supraventricular tachycardia): Code(s): I47.1 - Supraventricular tachycardia Status: Acute Assessment and Plan: ## currently stable -continue on tele (3) End stage COPD: Code(s): J44.9 - Chronic obstructive pulmonary disease, unspecified Status: Acute Assessment and Plan: ##Chronic - outpatient Pulmonolgy did refer to hospice services due to end stage - pt is on oxygen 2 liters at rest 4 liters with activity which is his baseline , --> roflumilast, inhalers and breathing treatments (4) Abscess of lung: Code(s): J85.2 - Abscess of lung without pneumonia Status: Acute Assessment and Plan: ## iv ampicillin, iv doxyxcycline --iv fluids consult -pulmonology did see today, --> hospice to evaluated home today to start Hospice Plan Discharge home on hospice DS: Summary Hospital Course Reason for hospitalization: Abscess too long without pneumonia, end-stage COPD Hospital Course: This is a 64 year old male with medical history of GIOVANNA on CPAP, Polycythemia, Low vitamin D, End stage COPD that presented to the Emergency Department 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 Recently found to have a lung abscess diagnosed by pulmology md adviced to come in for admission during office visit, patient declined at that time. Patient at that time was set to meet with Hospice at home. Patient reports however that he began to feel more sob and having pleuritic chest pain. Patient has oxygen at home 2 liter at rest 4 liter on ambulation. pt has quit smoking in 2022. ER found ct shows Right upper lobe consolidation and multiple air-fluid levels within multiple right pulmonary bullae suggesting pneumonia with superinfected bullae. Patient was agreeable to admission for IV antibiotic treatment and pulmonology consultation. Patient was seen and evaluated by Pulmonolgy, patient lung disease is at end stage. He is to continue his current regimen and to consider Hospice services. Hospice did come and speak with patient and his significant other, they have elected to start Hospice services. patient would like to return to his home on this service. After long discussion with this patient, patient will be discharged today on hospice services. Status at Discharge Cognitive/behavioral status at discharge: baseline Functional status at discharge: uses cane/walker Overall status at discharge: patient is back to baseline Time Spent with Patient Time attestation: Total time spent providing and/or coordinating discharge services: Time spent: Greater than 30 minutes (55 minutes) Exam Narrative: GENERAL:chronically ill cachexic on oxygen HEAD: Normocephalic, atraumatic. EYES: PERRLA and EOMI. ENT: Nares clear, no rhinorrhea or epistaxis. Mucous membranes moist. CHEST: Diminished lung sounds in all michele, No respiratory distress. No wheezes rales or rhonchi. HEART: Regular rate and rhythm. No murmur heard. Normal peripheral pulses. ABDOMEN: Soft, nontender, nondistended, normal active bowel sounds. EXTREMITIES: Normal range of motion. No edema. SKIN: Warm, dry, no rash. NEURO: No focal deficits. Alert and oriented x3. PSYCH: Normal mood and affect. DS: Data Data Completed and Pending Labs on day of discharge: Labs from last 24 hours 01/16/25 01/15/25 07:01 10:43 WBC Pending RBC Pending Hgb Pending Hct Pending MCV Pending MCH Pending MCHC Pending RDW Pending Plt Count Pending MPV Pending Immature Gran % (Auto) Pending Neut % (Auto) Pending Lymph % (Auto) Pending Allen % (Auto) Pending Eos % (Auto) Pending Baso % (Auto) Pending Lymph # (Auto) Pending Allen # (Auto) Pending Eos # (Auto) Pending Baso # (Auto) Pending Abs Immat Gran (auto) Pending Absolute Neuts (auto) Pending Absolute Nucleated RBC Pending Nucleated RBC % Pending Magnesium Pending C-Reactive Protein Pending TB Test (QFT) Gold Plus Pending TB Test (QFT) Nil Pending TB Test Mitogen - Nil Pending TB Test Ag - Nil 1 Pending TB Test Ag - Nil 2 Pending Preliminary micro results at discharge 01/13/25 22:28 Blood Culture - Preliminary Blood 01/13/25 22:28 Blood Culture - Preliminary Blood Imaging Radiologist's impression: ct shows - Right upper lobe consolidation and multiple air-fluid levels within multiple right pulmonary bullae suggesting pneumonia with superinfected bullae. Discharge Plan Discharge Attending physician on discharge: Pamela Ibarra Consulting providers: Chad Thorpe Discharging Clinician: Pamela Ibarra Anticipated Discharge Date/Time: 01/16/25 07:32 Patient Disposition: Hospice - Home Activity: may shower and as tolerated Diet: as tolerated Discharge Instructions: Follow up with Hospice today, they will be delivering all supplies to home and Hospice MD will follow. Patient Instructions: Hospice Care (GEN) Patient Language: Telugu Stand Alone Forms: General Discharge Information Discharge Medications: New doxycycline monohydrate 100 mg capsule 100 mg PO BID Qty: 10 0RF Continued Breztri Aerosphere 160-9-4.8 mcg/actuation HFA aerosol inhaler 2 inh inhalation BID 90 Days Qty: 10.7 2RF Rx Instructions: Rinse and spit after use. albuterol sulfate 2.5 mg /3 mL (0.083 %) solution for nebulization 2.5 mg inhalation Q6H 30 Days Qty: 360 5RF albuterol sulfate [Ventolin HFA] 90 mcg/actuation HFA aerosol inhaler 1 puff INHALATION Q4-6H PRN (Reason: bronchospasm) Qty: 8.5 1RF fluticasone propionate 50 mcg/actuation spray,suspension See Rx Instructions .ROUTE .COMPLEX Qty: 48 3RF Dose Instruction: USE 1 SPRAY IN EACH NOSTRIL TWICE DAILY Rx Instructions: USE 1 SPRAY IN EACH NOSTRIL TWICE DAILY Breztri Aerosphere 160-9-4.8 mcg/actuation HFA aerosol inhaler 2 inh inhalation Q12H 30 Days Qty: 10.7 11RF Rx Instructions: Rinse and spit after using. duloxetine 60 mg capsule,delayed release(DR/EC) See Rx Instructions .ROUTE .COMPLEX Qty: 90 1RF Dose Instruction: TAKE 1 CAPSULE BY MOUTH EVERY DAY Rx Instructions: TAKE 1 CAPSULE BY MOUTH EVERY DAY Discontinued azithromycin 250 mg tablet See Rx Instructions PO .COMPLEX 30 Days Qty: 14 5RF Rx Instructions: take 250 mg Sun, Sun and Fridays for COPD management azithromycin 250 mg tablet 250 mg PO 3XW 90 Days Qty: 39 3RF Rx Instructions: Take on Sun, Sun, and Fridays for COPD. amoxicillin-pot clavulanate [Augmentin XR] 1,000-62.5 mg tablet extended release 12 hr 1 tablet PO Q12H 30 Days Qty: 60 0RF No Action roflumilast [Daliresp] 500 mcg tablet 500 mcg PO DAILY 90 Days Qty: 90 3RF tizanidine 2 mg capsule 2 mg PO TID PRN (Reason: muscle spasticity) Qty: 60 0RF Date of admission: 01/14/25 01:25 Primary Care Provider: Twin Knowles Admitting Provider: Korina Watkins Attending physician on admission: Korina Watkins Condition: Stable Quality VTE Prophylaxis VTE prophylaxis: pharmacologic ordered Hospitalist MIPS Heart Failure (Exclusion) Patient has history of Heart Transplant or Left Ventricular Assistive Device?: No IF YES, STOP HERE Heart Failure (Qualifier) Patient has current or prior documentation of LVEF less than or equal to 40%, or mod/servere depressed LVSF?: No IF NO, STOP HERE
[2025-01-16 07:50] LABS: CRP 11.8 mg/dL (<1.0)
[2025-01-16] MEDS: FLUTICASONE PROPIONATE 0.05% NA SPR 16 GM BTL (*BKC) 1 SPRAY NASAL (08:40)
[2025-01-16] MEDS: ROFLUMILAST 500 MCG TABLET PO (08:40)
[2025-01-16] MEDS: METOPROLOL TARTRATE 12.5 MG TABLET PO (08:40)
--- NOTE | 2025-01-16 10:49 | P.PNPL_ITS ---
Progress Note: A&P Assessment and Plan (1) Emphysema lung: Qualifiers: Emphysema type: unspecified Qualified Code(s): J43.9 - Emphysema, unspecified Code(s): J43.9 - Emphysema, unspecified Status: Acute (2) COPD (chronic obstructive pulmonary disease) with chronic bronchitis: Code(s): J44.9 - Chronic obstructive pulmonary disease, unspecified Status: Acute (3) Multiple lung abscesses: Code(s): J85.2 - Abscess of lung without pneumonia Status: Acute Assessment and Plan: This 64-year-old man, with advanced bullous emphysema and chronic hypoxemic hypercapnic respiratory failure, is on home ventilatory support and supplemental oxygen. He presented with generalized weakness and weight loss. A chest CT revealed right upper lobe consolidation and multiple air-fluid levels within several right lung bullae, suggesting pneumonia with superinfected bullae. The radiographic findings, as indicated by the radiology report, are more consistent with superinfected bullae rather than lung abscesses. The patient does not exhibit signs of an active lung infection, such as cough with sputum, fever, chills, or leukocytosis. Considering his history of choking on food approximately two months ago, this condition could be related to possible smoldering aspiration pneumonia due to anaerobic bacteria or possibly a non- tuberculous mycobacterial infection in the setting of advanced bullous emphysema. Viral PCR testing negative, MRSA PCR also negative. According to the hospitalist's note, the patient is being considered for disc harge to home hospice care. If this plan has been agreed upon, I recommend continuing doxycycline 100 mg twice daily for 2 weeks and resuming the recent outpatient medication, Augmentin 1000/62.5 mg twice daily, for 4 weeks. I will sign off please call with any questions Subjective Date/time seen: 01/16/25 10:49 Interval history: Patient has no new respiratory symptoms. Continues with IV antibiotics and supplemental oxygen. Has not been able to cough up any phlegm. Review of Systems Review of Systems: All systems reviewed & are unremarkable except as noted in HPI and below (HPI and below) Exam Narrative: GENERAL APPEARANCE: Well developed, well nourished, alert and cooperative, and appears to be in no acute distress while in bed on supplemental oxygen SKIN: Inspection of the skin reveals no rashes, ulcerations or petechiae. HEENT: Sclerae anicteric and conjunctivae pink and moist. Extraocular movements were intact and pupils were equal, round, and reactive to light. The oral mucosa, hard and soft palate, tongue and posterior pharynx were normal. NECK: Supple. There was no thyroid enlargement, and no tenderness, or masses were felt. LUNGS: Hyperinflated lungs, distant breath sounds bilaterally no wheezing CARDIAC: There was a regular rate and rhythm without any murmurs, gallops, rubs. ABDOMEN: Soft and nontender with normal bowel sounds. There was no organomegaly. LYMPH NODES: No lymphadenopathy was appreciated in the neck. EXTREMITIES: Clubbing in upper extremities, no edema NEUROLOGIC: Alert and oriented x 3. Normal affect. Objective Data Vital Signs Vital Signs: Vital Signs - 24 hr 01/15/25 13:51 01/15/25 16:27 01/15/25 16:27 Temperature 35.7 C L Pulse Rate 104 H 97 Respiratory Rate 18 16 Blood Pressure 95/62 L Pulse Oximetry 96 98 Oxygen Delivery Nasal Cannula Oxygen Flow Rate 2 01/15/25 16:40 01/15/25 20:00 01/15/25 20:45 Temperature Pulse Rate 100 96 Respiratory Rate 16 18 Blood Pressure Pulse Oximetry 98 Oxygen Delivery Nasal Cannula Oxygen Flow Rate 2 01/15/25 20:49 01/15/25 21:00 01/15/25 21:20 Temperature 36.6 C Pulse Rate 96 97 102 H Respiratory Rate 18 16 Blood Pressure 111/64 Pulse Oximetry 98 98 Oxygen Delivery Nasal Cannula Oxygen Flow Rate 2 01/15/25 22:33 01/16/25 02:01 01/16/25 02:08 Temperature Pulse Rate 96 85 87 Respiratory Rate 18 18 Blood Pressure Pulse Oximetry Oxygen Delivery Oxygen Flow Rate 01/16/25 04:15 01/16/25 08:56 01/16/25 08:56 Temperature 36.1 C L Pulse Rate 83 99 95 Respiratory Rate 20 20 20 Blood Pressure 102/61 Pulse Oximetry 100 95 Oxygen Delivery Nasal Cannula Oxygen Flow Rate 3 01/16/25 09:13 Temperature Pulse Rate 96 Respiratory Rate 20 Blood Pressure Pulse Oximetry Oxygen Delivery Oxygen Flow Rate Intake/Output Intake/Output: Intake & Output 01/13/25 01/14/25 01/15/25 01/16/25 23:59 23:59 23:59 23:59 Intake Total 100 3520 4619.6 932 Output Total 300 1400 1575 Balance 100 3220 3219.6 -643 Meds/Results Medications: Active Medications Generic Name Dose Route Start Last Admin Trade Name Freq PRN Reason Stop Dose Admin Hydrocodone Bitart/Acetaminophen 1 tab 01/14/25 10:01 01/15/25 22:30 Hydrocodone/Acetaminophen (*Crx) 5-325 Mg Tablet PO 1 tab Q6H PRN Administration Pain Rated 4-6 Albuterol 2.5 mg 01/14/25 14:00 01/16/25 08:52 Albuterol Sulfate Neb 2.5 Mg/3 Ml Inh INHALATION 2.5 mg Q6HRT DAMIEN Administration Albuterol/Ipratropium 3 ml 01/14/25 02:00 01/16/25 08:52 Ipratropium 0.5 Mg/Albuterol Sulfate 2.5 Mg Ampul.Neb 3 Ml INHALATION 3 ml Q6HRT DAMIEN Administration Duloxetine HCl 60 mg 01/14/25 15:00 01/15/25 08:30 Duloxetine Hcl 60 Mg Capsule.Dr BY MOUTH 60 mg QAM DAMIEN Administration Enoxaparin Sodium 40 mg 01/15/25 09:00 01/16/25 08:40 Enoxaparin 40 Mg/0.4 Ml Syringe SUB-Q Not Given DAILY DAMIEN Fluticasone Propionate 1 spray 01/14/25 21:00 01/16/25 08:40 Fluticasone Propionate 0.05% Na Spr 16 Gm Btl (*Bkc) NASAL 1 spray Q12HR DAMIEN Administration Fluticasone/Umeclidinium/Vilanterol 1 puff 01/15/25 09:00 Fluticasone/Umeclidin/Vilanter 100-62.5-25 Mcg Ellipta INHALATION DAILY [facility] Ampicillin Sodium/Sulbactam Sodium 3 gm in 100 mls @ 200 mls/hr 01/13/25 22:00 01/16/25 03:00 Unasyn 3 Gm/Ns 100 Ml IVPB 200 mls/hr Q6H DAMIEN Administration Doxycycline Hyclate 100 mg in 100 mls @ 100 mls/hr 01/14/25 11:00 01/15/25 23:19 Vibramycin 100 Mg/Ns 100 Ml IVPB 100 mls/hr Q12H DAMIEN Administration Lactated Ringer's 1,000 mls @ 125 mls/hr 01/14/25 01:25 01/16/25 06:07 Lr - Lactated Ringers Iv IV CONT 125 mls/hr .Q8H DAMIEN Administration Metoprolol Tartrate 12.5 mg 01/14/25 23:00 01/16/25 08:40 Metoprolol Tartrate 12.5 Mg Tablet PO 12.5 mg Q12HR DAMIEN Administration Roflumilast 500 mcg 01/15/25 09:00 01/16/25 08:40 Roflumilast 500 Mcg Tablet PO 500 mcg DAILY DAMIEN Administration Sodium Chloride 6 ml 01/16/25 05:00 01/16/25 08:56 Sodium Chlor 3% 15 Ml Neb (Respiratory Therapy) INHALATION 01/18/25 05:01 Not Given DAILY@0500 DAMIEN Tizanidine HCl 2 mg 01/14/25 14:18 Tizanidine Hcl 2 Mg Tablet PO TID PRN muscle spasticity Radiology Results: ITS Impressions Chest X-Ray 01/13/25 22:04 IMPRESSION: Radiographic and concurrent CT findings consistent with right upper lobe pneumonia and superinfected bullae. Chest CT 01/13/25 22:18 IMPRESSION: Right upper lobe consolidation and multiple air-fluid levels within multiple right pulmonary bullae suggesting pneumonia with superinfected bullae. Labs Labs: Laboratory Results - last 24 hr 01/16/25 07:01 WBC 5.9 RBC 3.81 L Hgb 10.3 L Hct 32.6 L MCV 85.6 MCH 27.0 MCHC 31.6 L RDW 14.7 H Plt Count 325 MPV 10.2 Immature Gran % (Auto) 0.5 Neut % (Auto) 58.8 Lymph % (Auto) 24.3 [place] % (Auto) 10.6 H Eos % (Auto) 5.1 H Baso % (Auto) 0.7 Lymph # (Auto) 1.44 [place] # (Auto) 0.6 Eos # (Auto) 0.3 Baso # (Auto) 0.0 Abs Immat Gran (auto) 0.03 Absolute Neuts (auto) 3.5 Absolute Nucleated RBC 0.000 Nucleated RBC % 0.0 Magnesium 2.0 C-Reactive Protein 11.8 H
[2025-01-16] MEDS: DULoxetine HCL 60 MG CAPSULE.DR BY MOUTH (11:34)
[2025-01-16] MEDS: TIZANIDINE HCL 2 MG TABLET PO (11:34)
[2025-01-19 17:43] LABS: NIL 0.02 IU/mL; Quantiferon TB Plus, 1T NEGATIVE (NEGATIVE)
== END 2025-01-16 15:55 | disposition hospice, home (50) | DRG 178 ==
LOC: ANHED 01-14 01:24 → ANH3MEDSUR 01-14 02:10
PROVIDERS: Internal Medicine Pulmonary Disease; Admitting Provider Internal Medicine; Emergency Provider Emergency Medicine; PCP Family Medicine; Visit Provider Nurse Practitioner Family
DX: J85.1 Abscess of lung with pneumonia (principal); I47.10 Supraventricular tachycardia, unspecified; R64 Cachexia; J96.11 Chronic respiratory failure with hypoxia; J96.12 Chronic respiratory failure with hypercapnia; J43.9 Emphysema, unspecified; G47.33 Obstructive sleep apnea (adult) (pediatric); Z87.891 Personal history of nicotine dependence; Z68.22 Body mass index [BMI] 22.0-22.9, adult
CPT/HCPCS: 36415; 36600; 71045; 71250; 80053; 81001; 82805; 83605; 83690; 83735; 84100; 85018; 85025; 85610; 85730; 86140; 86480; 87040; 87637; 87641; 93005; 94640; 96365; 96367; 99285; A9270; J0295; J1650; J7120